=== PATIENT | female | born 1950 | race American Indian/Alaskan Native ===

== ENCOUNTER 2019-12-30 12:30 | Emergency (ER) | payer SELFPAY ==
[2019-12-30] MEDS ORDERED: predniSONE 50 MG TAB PO STA (13:11)
[2019-12-30] MEDS ORDERED: oxyCODONE /ACETAMINOPHEN 5-325MG TAB PO ONE (13:11)
--- NOTE | 2019-12-30 13:15 | Emergency Department Report ---
ED Back Pain/Injury HPI - General Chief Complaint: Back Pain/Injury Stated Complaint: RIGHT SIDED BODY PAIN Time Seen by Provider: 12/30/19 13:10 Source: patient Limitations: No Limitations - History of Present Illness MD Complaint: back pain -: days(s) (3) Similar Symptoms Previously: No Place: home Radiation: right leg Severity: moderate Quality: burning, sharp Consistency: intermittent Improves With: none Worsens With: movement Context: unknown Associated Symptoms: numbness. denies: chest pain, cough, difficulty urinating, incontinence, fever/chills, nausea/vomiting, seizure, shortness of breath - Related Data Previous Rx's Medication Instructions Recorded Last Taken Type methOCARBAMOL [Robaxin TAB] 750 mg PO Q8H PRN #14 tablet 12/30/19 Unknown Rx predniSONE [Deltasone] 20 mg PO QDAY #5 tab 12/30/19 Unknown Rx traMADoL [Ultram] 50 mg PO Q6HR PRN #20 tablet 12/30/19 Unknown Rx Allergies Allergy/AdvReac Type Severity Reaction Status Date / Time No Known Allergies Allergy Unverified 12/30/19 12:59 ED Review of Systems ROS: Stated complaint: RIGHT SIDED BODY PAIN Other details as noted in HPI Constitutional: denies: chills, fever Eyes: denies: eye pain, eye discharge, vision change ENT: denies: ear pain, throat pain Respiratory: denies: cough, shortness of breath, wheezing Cardiovascular: denies: chest pain, palpitations Endocrine: no symptoms reported Gastrointestinal: denies: abdominal pain, nausea, diarrhea Genitourinary: denies: urgency, dysuria, discharge Musculoskeletal: back pain. denies: joint swelling, arthralgia Skin: denies: rash, lesions Neurological: denies: headache, weakness, paresthesias Psychiatric: denies: anxiety, depression Hematological/Lymphatic: denies: easy bleeding, easy bruising ED Past Medical Hx - Past Medical History Previous Medical History?: Yes Hx Hypertension: Yes Hx Diabetes: Yes - Social History Smoking Status: Never Smoker Substance Use Type: None - Medications Home Medications: Home Medications Medication Instructions Recorded Confirmed Last Taken Type methOCARBAMOL [Robaxin TAB] 750 mg PO Q8H PRN #14 tablet 12/30/19 Unknown Rx predniSONE [Deltasone] 20 mg PO QDAY #5 tab 12/30/19 Unknown Rx traMADoL [Ultram] 50 mg PO Q6HR PRN #20 tablet 12/30/19 Unknown Rx ED Physical Exam - General Limitations: No Limitations General appearance: alert, in no apparent distress - Head Head exam: Present: atraumatic, normocephalic - Eye Eye exam: Present: normal appearance - ENT ENT exam: Present: mucous membranes moist - Neck Neck exam: Present: normal inspection - Respiratory Respiratory exam: Present: normal lung sounds bilaterally. Absent: respiratory distress - Cardiovascular Cardiovascular Exam: Present: regular rate, normal rhythm. Absent: systolic murmur, diastolic murmur, rubs, gallop - GI/Abdominal GI/Abdominal exam: Present: soft, normal bowel sounds - Extremities Exam Extremities exam: Present: normal inspection - Back Exam Back exam: Present: normal inspection, tenderness, other (The tenderness of the right sacroiliac joint with palpation. Pain with a a Jade's test is noted.). Absent: paraspinal tenderness - Neurological Exam Neurological exam: Present: alert, oriented X3, CN II-XII intact, reflexes normal. Absent: motor sensory deficit - Psychiatric Psychiatric exam: Present: normal affect, normal mood - Skin Skin exam: Present: warm, dry, intact, normal color. Absent: rash ED Course Vital Signs 12/30/19 12/30/19 12/30/19 12:56 14:18 15:45 Temperature 98.9 F Pulse Rate 86 Respiratory 20 18 18 Rate Blood Pressure 146/85 Blood Pressure [Right] O2 Sat by Pulse 99 Oximetry 12/30/19 16:11 Temperature Pulse Rate 87 Respiratory 18 Rate Blood Pressure Blood Pressure 140/76 [Right] O2 Sat by Pulse 99 Oximetry ED Medical Decision Making - Medical Decision Making Pt presents the emergency department complaining of back pain most consistent with sciatica back Pain. Differential Diagnosis Includes LumbGo Versus Musculoskeletal Spasm, Strain Versus Sciatica, sacroiliitis. No Back Pain Red Flags on History or Physical. Presentation Not Consistent with Malignancy, Fracture, Cauda Equina, Abdominal Aortic Aneurysm, Viscus Perforation, Pulmonary Embolism, Renal Colic, Pyelonephritis. Patient reports no B symptoms, trauma trauma, incontinence, saddle anesthesia, distal weakness, urinary symptoms and is a febrile.. Critical care attestation.: If time is entered above; I have spent that time in minutes in the direct care of this critically ill patient, excluding procedure time. ED Disposition Clinical Impression: Sciatica Disposition: DC-01 TO HOME OR SELFCARE Is pt being admited?: No Does the pt Need Aspirin: No Condition: Stable Instructions: Lumbar Radiculopathy (ED) Prescriptions: predniSONE [Deltasone] 20 mg PO QDAY #5 tab methOCARBAMOL [Robaxin TAB] 750 mg PO Q8H PRN #14 tablet PRN Reason: Pain, Moderate (4-6) traMADoL [Ultram] 50 mg PO Q6HR PRN #20 tablet PRN Reason: Pain Referrals: JOSE MARTEL MD [Staff Physician] - 3-5 Days
[2019-12-30] MEDS ORDERED: KETOROLAC 60 MG/2 ML INJ IM STA (15:09)
[2019-12-30 16:12] VITALS: BP 140/76
== END 2019-12-30 14:57 | disposition home or self-care (01) ==
LOC: EDBD → ED 12:30
DX: M54.30 Sciatica, unspecified side (principal); I10 Essential (primary) hypertension; E11.9 Type 2 diabetes mellitus without complications
CPT/HCPCS: 96372; 99282; J1885; J7512

== ENCOUNTER 2020-01-16 16:07 | Outpatient (CLI) | payer MEDICAID ==
--- NOTE | 2020-01-16 18:17 | XRay Report ---
BILATERAL KNEE 4 VIEW(S) INDICATION / CLINICAL INFORMATION: PAIN IN UNSPECIFIED KNEE COMPARISON: None available. FINDINGS: BONES / JOINT(S): No acute fracture or subluxation. Moderate arthrosis bilaterally, most prominent in the medial tibiofemoral compartment. SOFT TISSUES: No significant abnormality. ADDITIONAL FINDINGS: None. Signer Name: Eric Enriquez MD Signed: 01/16/2020 6:13 PM Workstation Name: [id number]
--- NOTE | 2020-01-16 18:21 | XRay Report ---
Lumbar spine radiograph, 11 images provided. HISTORY: Low back pain. COMPARISON: None FINDINGS: There is grade 1 anterolisthesis of L4 on L5 related to moderate lower lumbar facet arthrop athy. There is also degenerative retrolisthesis of L5 on S1. There is moderate disc space height loss and vacuum phenomenon at L5-S1, mild at other levels. No fracture. No pars defect is identified. The SI joints are intact with bilateral degenerative changes. IMPRESSION: Moderate lower lumbar spondylosis, without acute process identified. Signer Name: Darrian Guan MD Signed: 01/16/2020 6:17 PM Workstation Name: [id number]
== END 2020-01-16 16:08 | disposition home or self-care (01) ==
LOC: XRAY 16:07
PROVIDERS: ATTEND Orthopaedic Surgery
DX: M43.16 Spondylolisthesis, lumbar region (principal); M43.17 Spondylolisthesis, lumbosacral region; M47.816 Spondylosis without myelopathy or radiculopathy, lumbar region; M17.0 Bilateral primary osteoarthritis of knee
CPT/HCPCS: 72110; 73565

== ENCOUNTER 2020-02-16 07:03 | Day surgery (SDC) | payer MEDICARE, MEDICAID ==
[2020-02-16 07:50] VITALS: BP 118/64
[2020-02-16] MEDS ORDERED: LIDOCAINE (1%) 10 MG/1 ML VIAL 20 ML MDV ONE (08:31)
[2020-02-16] MEDS ORDERED: BUPIVACAINE/PF (0.25%) 2.5 MG/ML 30 ML VIAL INFILTRATI ONE (08:31)
[2020-02-16] MEDS ORDERED: BUPIVACAINE/PF (0.5%) 5 MG/1 ML 30 ML VIAL INFILTRATI ONE ×2 (08:32→08:50)
[2020-02-16] MEDS ORDERED: LIDOCAINE (1%) 10 MG/1 ML VIAL 20 ML MDV INFILTRATI ONE (08:50)
--- NOTE | 2020-02-16 09:27 | Procedure Note ---
Date of procedure: 02/16/20 Pre-op diagnosis: Right knee pain Post-op diagnosis: same Procedure: Right geniculate Nerve Block under C-arm fluroscopy procedure The patient taken to the operating room where he was place on the table supine with padded triangular pad placed along the potileal fossa. The right knee prepped and draped in usual sterile fashion. 22-gauge spinal needle used to locate areas for injection, the medial and lateral supracondylar ridges, 2 cm proximal to the superior pole of the patella as well as the medial border of the proximal tibia. These areas were anesthized using lidocaine 1% followed by placement of spinal needle near the medial, and lateral geniculate nerves. A mixture of marcaine and lidocaine injected into the deeper structures. There were no complications noted and he tolerated well. Anesthesia: local Surgeon: JOSE MARTEL Estimated blood loss: minimal Pathology: none Condition: stable Disposition: observation
--- NOTE | 2020-02-16 10:22 | XRay Report ---
RIGHT KNEE 2 VIEWS INDICATION / CLINICAL INFORMATION: RT KNEE PAIN. COMPARISON: None available. FINDINGS: AP and lateral views made in OR show needles projected over the distal femur both medially and latera lly, and over the proximal tibia medially. Fluoroscopy time 16 seconds. 2 images. Signer Name: Mason Bowie MD Signed: 02/16/2020 10:17 AM Workstation Name: [id number]
== END 2020-02-16 09:17 | disposition home or self-care (01) ==
LOC: OR 07:03
PROVIDERS: ATTEND Orthopaedic Surgery
DX: M25.561 Pain in right knee (principal); E78.00 Pure hypercholesterolemia, unspecified; I10 Essential (primary) hypertension; J45.909 Unspecified asthma, uncomplicated; K21.9 Gastro-esophageal reflux disease without esophagitis; M19.90 Unspecified osteoarthritis, unspecified site; D64.9 Anemia, unspecified; Z98.890 Other specified postprocedural states; Z79.899 Other long term (current) drug therapy; Z90.710 Acquired absence of both cervix and uterus; Z79.84 Long term (current) use of oral hypoglycemic drugs; Z98.41 Cataract extraction status, right eye; Z98.42 Cataract extraction status, left eye
CPT/HCPCS: 82962

== ENCOUNTER 2020-08-10 10:38 | Outpatient (CLI) | payer MEDICARE ==
--- NOTE | 2020-08-10 11:57 | XRay Report ---
RIGHT KNEE 2 VIEWS INDICATION / CLINICAL INFORMATION: RIGHT KNEE PAIN. COMPARISON: 04/21/2020 FINDINGS: Right total knee arthroplasty. Normal alignment. No change from the prior examination dated 04/21/2020 Signer Name: Jamir Tan MD FACR Signed: 08/10/2020 11:53 AM Workstation Name: [id number]
== END 2020-08-10 10:39 | disposition home or self-care (01) ==
LOC: XRAY 10:38
PROVIDERS: ATTEND Orthopaedic Surgery
DX: M17.11 Unilateral primary osteoarthritis, right knee (principal); Z96.651 Presence of right artificial knee joint

== ENCOUNTER 2021-07-11 06:37 | Inpatient (IN) | payer MEDICAID, MEDICARE ==
[2021-07-09 11:28] LABS: Hematocrit 33.6 % (30.3-42.9); Hemoglobin 10.8 gm/dl (10.1-14.3); Mean Corpuscular HGB Conc 32 % (30-34); Mean Corpuscular Volume 76 fl (79-97); Platelet Count 221 K/mm3 (140-440); Red Cell Distribution Width 16.9 % (13.2-15.2)
[2021-07-09 11:47] LABS: Calcium 8.9 mg/dL (8.4-10.2); Hemolysis Index 5
[2021-07-09 11:53] LABS: BUN/Creatinine Ratio 15; Blood Urea Nitrogen 12 mg/dL (7-17)
--- NOTE | 2021-07-09 14:35 | Anesthesia Consultation ---
Anesthesia Consult and Med Hx - Airway Anesthetic Teeth Evaluation: Edentulous (Upper) ROM Head & Neck: Adequate Mental/Hyoid Distance: Adequate Mallampati Class: Class II Intubation Access Assessment: Good - Pre-Operative Health Status ASA Pre-Surgery Classification: ASA3 Proposed Anesthetic Plan: General Nerve Block: AC - Pulmonary Hx Smoking: No Hx Asthma: Yes (INHALER PRN ) Hx Respiratory Symptoms: No (Poor exercise tolerance) SOB: Yes (SOB WITH ACTIVITY) Hx Sleep Apnea: No (HENRIETTA PRE SCREEN HIGH RISK) - Cardiovascular System Hx Hypertension: Yes Hx Internal Defibrillator: No - Central Nervous System Hx Neuromuscular Disorder: Yes (Neuropathy. Gout) Hx Seizures: No Hx Back Pain: Yes (WITH SCIATIC PAIN) Hx Psychiatric Problems: No - Gastrointestinal Hx Gastroesophageal Reflux Disease: Yes - Endocrine Hx Insulin Dependent Diabetes: Yes (Poorly controlled) - Hematic Hx Anemia: Yes Hx Sickle Cell Disease: Yes (?trait) - Other Systems Hx Cancer: No Hx Obesity: Yes - Additional Comments Anesthesia Medical History Comments: Here [id number] for R TKA under [place]
[~2021-07-11 06:37] MED LIST: ACETAMINOPHEN 325 MG TAB PO NR; CELECOXIB 200 MG CAP PO NR; MAGNESIUM OXIDE 400 MG TAB PO NR; MIDAZOLAM 2 MG/2 ML INJ IV NR; fentaNYL 100 MCG/2 ML INJ IV NR
[2021-07-11] MEDS ORDERED: TRANEXAMIC ACID 1,000 MG/10 ML ONE (07:14)
[2021-07-11] MEDS ORDERED: BUPIVACAINE/PF (0.5%) 5 MG/1 ML 30 ML VIAL INFILTRATI ONE ×2 (07:14→09:26)
[2021-07-11] MEDS ORDERED: SODIUM CHLORIDE 0.9% 200 ML ONE (07:14)
[2021-07-11] MEDS ORDERED: SODIUM CHLORIDE 0.9% 50 ML ONE (07:14)
[2021-07-11] MEDS ORDERED: KETOROLAC 30 MG/1 ML INJ ONE (07:14)
[2021-07-11] MEDS ORDERED: NEOMY 40 MG/POLYMYXIN B 200,000 UNITS/ML (GU) AMPULE IR ONE ×2 (07:15→09:26)
[2021-07-11] MEDS: LACTATED RINGERS 1,000 ML IV SCH ×2 (07:50→15:12)
[2021-07-11] MEDS ORDERED: ceFAZolin/Water 2 GM/20 ML 2 GM/20 ML SYRINGE IV NR (08:00)
[2021-07-11] MEDS ORDERED: propofoL 200 MG/20 ML VIAL IV ONE ×2 (08:06→08:53)
[2021-07-11] MEDS ORDERED: fentaNYL 100 MCG/2 ML INJ ONE ×2 (08:09→09:30)
[2021-07-11] MEDS ORDERED: ROCURONIUM 50 MG/5 ML INJ IV ONE (08:09)
[2021-07-11] MEDS ORDERED: LIDOCAINE MPF (2%) 20 MG/1 ML VIAL 5 ML ONE (08:09)
[2021-07-11] MEDS ORDERED: BUPIVACAINE/PF (0.25%) 2.5 MG/ML 30 ML VIAL INFILTRATI ONE (08:14)
[2021-07-11] MEDS ORDERED: dexAMETHasone 4 MG/ML VIAL ONE (08:15)
--- NOTE | 2021-07-11 08:17 | Anesthesia Day of Surgery ---
Anesthesia Day of Surgery - Day of Surgery Patient Examined: Yes Patient H&P Reviewed: Yes (Pt reports new cough; +bilat expir wheezing) Patient is NPO: Yes
[2021-07-11] MEDS ORDERED: ONDANSETRON 4 MG/2 ML INJ IV PRN ×2 (08:30→11:30)
[2021-07-11] MEDS ORDERED: HYDROmorphone 1 MG/1 ML INJ IV PRN ×2 (08:30)
[2021-07-11] MEDS ORDERED: ALBUTEROL 2.5 MG/3 ML NEBU IH SCH ×3 (08:30→16:00)
[2021-07-11] MEDS ORDERED: ONDANSETRON 4 MG/2 ML INJ ONE (09:11)
[2021-07-11] MEDS ORDERED: dexAMETHasone 20 MG/5 ML VIAL ONE (09:11)
[2021-07-11] MEDS ORDERED: MORPHINE 10 MG/1 ML INJ IM ONE (09:26)
[2021-07-11] MEDS ORDERED: SODIUM CHLORIDE 0.9% 100 ML IVPB IV ONE (09:26)
[2021-07-11] MEDS ORDERED: KETOROLAC 30 MG/1 ML INJ IV ONE (09:26)
[2021-07-11] MEDS ORDERED: SODIUM CHLORIDE 0.9% IRRIG SOLN 2000 ML IR ONE (09:26)
[2021-07-11] MEDS ORDERED: SODIUM CHLORIDE 0.9% IRR 1,500 ML BOTTLE IR ONE (09:26)
[2021-07-11] MEDS ORDERED: TRANEXAMIC ACID 1,000 MG/10 ML IV ONE (09:26)
[2021-07-11] MEDS ORDERED: SODIUM CHLORIDE 0.9% 50 ML VIAL IV ONE (09:26)
[2021-07-11] MEDS ORDERED: MORPHINE 10 MG/1 ML INJ ONE (09:29)
[2021-07-11] MEDS ORDERED: HYDROmorphone 1 MG/1 ML INJ ONE (10:30)
--- NOTE | 2021-07-11 10:55 | Procedure Note ---
Date of procedure: 07/11/21 Pre-op diagnosis: Severe Osteoarthritis left knee Post-op diagnosis: same Procedure: left total knee replacement Procedure The patient was brought to the OR and place on the OR table supine, next she was given general anesthesia. The patient is left lower extremity was prepped and draped in the usual sterile manner. A timeout procedure was done to identify the patient in the correct operative site. The leg was exsanguinated followed by inflation of the pneumatic tourniquet to 300 mmHg. A midline incision was made over the patella was taken down distally towards the tibial tubercle next the medial retinaculum was incised and the patella was inverted examination of the patient's knee joint revealed typical osteoarthritic changes with large bone spurs noted primarily in the medial compartment both the femoral and tibial's articular surfaces exhibited bare bone and large peripheral osteophytes next a large drill bit was used to enter the medullary canal this was followed by placement of the distal femoral cutting Jig the distal femur was resected approximately 8-9 mm of bone was removed at this time. Attention was turned to the patient's proximal tibia using a external alignme guide the bone was cut using the medial surface as the low point of care was taken to protect the medial collateral ligaments the tibial articular surface was 7-sized A3 a #3 tibial based ray was selected this was followed by placement of the fixation hole or keel into the proximal tibial artery medullary canal. Attention was turned to the distal femur and using a 4 and 1 cutting block a +3 component was selected AP anterior and posterior as well as Shamffer cuts were made a +3 tibial ostomy femoral component was placed and the knee was then taken to a range of motion she appeared to have stability in both the flexion and extension FOLLOWING this the trial components were removed the knee was then copiously irrigated any remaining soft tissue and bony debris were removed at this time next the cement was next and following this the tibial components were inserted beginning with the based ray followed by the polyethylene insert The femoral component was added the excess were removed the knee was held in extension until the cement hardened following hardening of cement the knee was then brought back into of flexion any remaining soft tissue and bony debris were removed at this time. The wound again was irrigated and was closed in a standard routine fashion. Dressings were applied the patient tolerated the procedure there were no complications she was then taken Anesthesia: GETA Surgeon: JOSE MARTEL (Porfirio Wallace, 1st assist) Estimated blood loss: 50-100ml Pathology: list (portions of distal femur and proximal tibia sent to path) Condition: stable Disposition: PACU
[2021-07-11] MEDS ORDERED: ALBUTEROL 8.5 GM MDI INHALATION IH ONE (10:56)
[2021-07-11] MEDS ORDERED: GLYCOPYRROLATE 0.4 MG/2 ML INJ ONE (10:59)
[2021-07-11] MEDS ORDERED: IBUPROFEN 800 MG TAB PO PRN (11:00)
[2021-07-11] MEDS ORDERED: NEOSTIGMINE 10MG/10 ML INJ MDV ONE (11:00)
[2021-07-11] MEDS ORDERED: INSULIN LISPRO 100 UNIT/ML SUB-Q SCH (11:30)
[2021-07-11] MEDS ORDERED: INSULIN LISPRO 100 UNIT/ML SUB-Q ONE (11:33)
[2021-07-11] MEDS ORDERED: SODIUM CHLORIDE 0.9% 1000 ML 1,000 ML ONE (11:40)
[2021-07-11] MEDS ORDERED: INSULIN REGULAR, HUMAN 100 UNITS/1 ML SUB-Q SCH (13:00)
[2021-07-11] MEDS ORDERED: INSULIN REGULAR, HUMAN 100 UNITS/1 ML IV SCH (13:00)
--- NOTE | 2021-07-11 14:54 | Post Anesthesia Evaluation ---
- Post Anesthesia Evaluation Patient Participated: Yes Airway Patent: Yes Stable Respiratory Function: Yes Nausea/Vomiting: No Temp > 96.8F: Yes Pain Manageable: Yes Adequeate Hydration: Yes Anesthesia Complications: No Block Receding Appropriately: Not Applicable Patient on Ventilator: No
[2021-07-11] MEDS ORDERED: ZOLPIDEM 5 MG TAB PO PRN (22:00)
[2021-07-11] MEDS: INSULIN LISPRO 100 UNIT/ML SUB-Q SCH (22:58)
[2021-07-12] MEDS: MORPHINE 4 MG/1 ML INJ IV PRN ×2 (00:07→12:24)
--- NOTE | 2021-07-12 08:39 | XRay Report ---
. LEFT KNEE 2 VIEW(S) INDICATION / CLINICAL INFORMATION: post op evaluation, s/p TKR COMPARISON: None available. FINDINGS: Knee arthroplasty has been placed with satisfactory postoperative radiographic appearance. Signer Name: Oli Dwyer MD Signed: 07/12/2021 8:35 AM Workstation Name: [id number]
--- NOTE | 2021-07-12 08:45 | Post Anesthesia Evaluation ---
- Post Anesthesia Evaluation Patient Participated: Yes Airway Patent: Yes Stable Respiratory Function: Yes Nausea/Vomiting: No Temp > 96.8F: Yes Pain Manageable: Yes Adequeate Hydration: Yes Anesthesia Complications: No Block Receding Appropriately: Yes Patient on Ventilator: No
[2021-07-12] MEDS: INSULIN LISPRO 100 UNIT/ML SUB-Q SCH ×4 (09:09→22:16)
[2021-07-12] MEDS: ENOXAPARIN 40 MG/0.4 ML INJ SUB-Q SCH (09:09)
--- NOTE | 2021-07-12 11:50 | Consultation ---
History of Present Illness - Reason for Consult Consult date: 07/12/21 Medical management Requesting physician: JOSE MARTEL - History of Present Illness Left total knee replacement Hospitalist service was requested medical consult and medical management Patient has multiple medical problems as hypertension, dyslipidemia, type 2 diabetes melitis, morbid obesity Patient complains of generalized weakness and some pain at the surgical site Morbidly obese in mild distress Past History Past Medical History: diabetes, hypertension, hyperlipidemia, other (Obesity, bronchial asthma neuropathy,) Past Surgical History: total hip replacement (Left total knee replacement) Social history: denies: smoking, alcohol abuse, prescription drug abuse Family history: no significant family history Medications and Allergies Allergies Allergy/AdvReac Type Severity Reaction Status Date / Time LOBSTER AdvReac Itching Uncoded 04/19/20 11:38 Home Medications Medication Instructions Recorded Confirmed Last Taken Type Albuterol Sulfate [Proventil Hfa] 2 puff IH Q4H PRN 02/13/20 07/12/21 07/10/21 History amLODIPine 10 mg PO DAILY #30 tablet 04/24/20 07/11/21 07/10/21 Rx Ferrous Sulfate [Iron 325 MG] 325 mg PO DAILY 07/09/21 07/11/21 07/10/21 History ALBUTEROL NEB's [Proventil 0.083% 2.5 mg IH TID PRN 07/12/21 07/12/21 Unknown History NEBS] Apixaban [Eliquis] 5 mg PO DAILY #30 07/12/21 Unknown Rx Budesonide/Formoterol Fumarate 2 puff IH BID 07/12/21 07/12/21 07/10/21 History [Symbicort 80-4.5 Mcg Inhaler] Insulin Glargine [Lantus VIAL] 30 unit SUB-Q QHS 07/12/21 07/12/21 07/10/21 History Meclizine [Antivert] 12.5 mg PO BID PRN 07/12/21 07/12/21 07/10/21 History Metformin HCl [metFORMIN] 1,000 mg PO BID 07/12/21 07/12/21 07/10/21 History Montelukast [Singulair] 10 mg PO QPM 07/12/21 07/12/21 07/10/21 History Omeprazole 40 mg PO QDAY 05/08/2807/12/21 07/10/21 History Oxycodone HCl/Acetaminophen 1 each PO Q6HR PRN #30 07/12/21 Unknown Rx [Percocet 10/325 mg] Valsartan/Hydrochlorothiazide 1 tab PO QDAY 07/12/21 07/12/21 07/10/21 History [Valsartan-Hctz 320-25 mg Tab] glipiZIDE [Glucotrol] 10 mg PO QDAY 07/12/21 07/12/21 07/10/21 History Active Meds: Active Medications Bisacodyl (Bisacodyl 10 Mg Rect Supp) 10 mg NM QDAY PRN PRN Reason: Constip unreliev by MOM/or NPO Enoxaparin Sodium (Enoxaparin 40 Mg/0.4 Ml Inj) 40 mg SUB-Q QDAY LIZBETH Last Admin: 07/12/21 09:09 Dose: 40 mg Lactated Ringer's (Lactated Ringers) 1,000 mls @ 125 mls/hr IV DIRECT LIZBETH Last Infusion: 07/11/21 23:48 Dose: Infused Ibuprofen (Ibuprofen 800 Mg Tab) 800 mg PO Q8H PRN PRN Reason: Pain, Moderate (4-6) Insulin Human Lispro (Insulin Lispro 100 Unit/Ml) 0 unit SUB-Q ACHS ILZBETH; Cherise col Last Admin: 07/12/21 09:09 Dose: 3 unit Ketorolac Tromethamine (Ketorolac 30 Mg/1 Ml Inj) 15 mg IV Q6H PRN PRN Reason: Pain, Moderate (4-6) Stop: 07/16/21 12:59 Morphine Sulfate (Morphine 4 Mg/1 Ml Inj) 4 mg IV Q4H PRN PRN Reason: Pain , Severe (7-10) Last Admin: 07/12/21 00:07 Dose: 4 mg Ondansetron HCl (Ondansetron 4 Mg/2 Ml Inj) 4 mg IV Q8H PRN PRN Reason: Nausea And Vomiting Sodium Chloride (Sodium Chloride 0.9% 10 Ml Flush Syringe) 10 ml IV PRN PRN PRN Reason: flush Zolpidem Tartrate (Zolpidem 5 Mg Tab) 5 mg PO QHS PRN PRN Reason: Sleep Review of Systems Constitutional: fatigue, no weight loss, no weight gain Ears, nose, mouth and throat: no nasal congestion, no nasal discharge Cardiovascular: no chest pain, no orthopnea Respiratory: no cough, no shortness of breath Gastrointestinal: no abdominal pain, no nausea, no vomiting Musculoskeletal: no myalgias, no arthritis Integumentary: no rash, no lesions Neurological: no seizures, no syncope, no tremors Psychiatric: no anxiety, no confusion Endocrine: no cold intolerance, no heat intolerance Hematologic/Lymphatic: no easy bruising, no easy bleeding Allergic/Immunologic: no urticaria, no allergic rhinitis Exam - Constitutional Vitals: Temp Pulse Resp BP Pulse Ox 98.0 F 88 20 188/86 97 07/12/21 05:20 07/12/21 05:20 07/12/21 05:20 07/12/21 05:20 07/12/21 06:51 General appearance: Present: mild distress, well-nourished, obese (Morbidly obese) - EENT Eyes: Present: PERRL, EOM intact - Neck Neck: Present: supple, normal ROM - Respiratory Respiratory effort: normal Respiratory: bilateral: diminished, negative: rales, rhonchi, wheezing - Cardiovascular Rhythm: regular Heart Sounds: Present: S1 & S2 - Extremities Extremities: no ischemia, abnormal (Surgical dressing in place) - Abdominal General gastrointestinal: Present: soft, non-tender, non-distended, normal bowel sounds - Integumentary Integumentary: Present: clear, warm - Musculoskeletal Musculoskeletal: strength equal bilaterally, generalized weakness - Psychiatric Psychiatric: appropriate mood/affect, cooperative - Neurologic Neurologic: moves all extremities Results - Labs CBC & Chem 7: 07/09/21 10:05 07/09/21 00:01 Labs: Abnormal lab results 07/11/21 07/11/21 07/11/21 Range/Units 11:20 12:39 14:21 POC Glucose 318 H 281 H 181 H (70-105) mg/dL 07/11/21 07/12/21 Range/Units 22:25 08:18 POC Glucose 326 H 246 H (70-105) mg/dL Assessment and Plan --S/P left total knee replacement; Continue postop care per orthopedic Pain management, physical therapy occupational therapy rehabilitation -- Hypertension; moderate control Resume home antihypertensives As needed IV hydralazine -- Type 2 diabetes mellitus; Accu-Chek, sliding scale coverage, ADA diet Long-acting insulin and oral hypoglycemics -- DVT prophylaxis; Subcu Lovenox --Morbid obesity; BMI 39.2 Diet modification exercise as tolerated and weight reduction When patient is medically stable Preventive counseling;+30 minutes patient advised dietary modification Exercise as tolerated and weight reduction when medically stable Patient was also advised the importance of physical activity And lifestyle changes, she verbalized understanding I have answered all questions We will closely monitor the patient and adjust management as needed Plan of care reviewed with the patient and her nurse Thank you for this consultation we will follow the patient along with you
[2021-07-12] MEDS ORDERED: ALBUTEROL 8.5 GM MDI INHALATION IH PRN (13:30)
[2021-07-12] MEDS ORDERED: hydrALAZINE 20 MG/1 ML INJ IV PRN (14:00)
[2021-07-12] MEDS: ALBUTEROL 2.5 MG/3 ML NEBU IH SCH ×2 (14:00→16:00)
--- NOTE | 2021-07-12 14:08 | Progress Note ---
Assessment and Plan s/p left TKR doing well, hopefully dc 2moro Subjective Date of service: 07/12/21 Interval history: c/o some incisional pain, a little blood on dressing otherwise ok, PT started... Objective Vital signs: Vital Signs - 12hr 07/12/21 07/12/21 05:20 06:51 Temperature 98.0 F Pulse Rate 88 Respiratory 20 Rate Blood Pressure 188/86 O2 Sat by Pulse 100 97 Oximetry Incision: draining Weight bearing status: as tolerated - Labs CBC & BMP: 07/09/21 10:05 07/09/21 00:01 Labs: Abnormal lab results 07/11/21 07/11/21 07/11/21 Range/Units 11:20 12:39 14:21 POC Glucose 318 H 281 H 181 H (70-105) mg/dL 07/11/21 07/12/21 07/12/21 Range/Units 22:25 08:18 11:21 POC Glucose 326 H 246 H 323 H (70-105) mg/dL
[2021-07-12] MEDS: KETOROLAC 30 MG/1 ML INJ IV PRN (14:48)
[2021-07-12] MEDS ORDERED: ALBUTEROL 2.5 MG/3 ML NEBU IH PRN ×2 (16:00→23:34)
[2021-07-12] MEDS ORDERED: INSULIN GLARGINE 100 UNITS/ML SUB-Q SCH ×2 (22:00)
[2021-07-13] MEDS: ALBUTEROL 2.5 MG/3 ML NEBU IH SCH ×3 (07:27→21:06)
[2021-07-13] MEDS: INSULIN LISPRO 100 UNIT/ML SUB-Q SCH ×4 (07:30→21:31)
[2021-07-13] MEDS: glipiZIDE 10 MG TAB PO SCH (09:17)
[2021-07-13] MEDS: ENOXAPARIN 40 MG/0.4 ML INJ SUB-Q SCH (09:17)
[2021-07-13] MEDS: FERROUS SULFATE 325 MG TAB PO SCH (09:18)
[2021-07-13] MEDS: amLODIPine 10 MG TAB PO SCH (09:18)
[2021-07-13] MEDS ORDERED: NON-FORMULARY EACH (Metformin Hcl [Metformin] 1,000 MG Tablet) PO SCH (10:00)
[2021-07-13] MEDS ORDERED: INSULIN GLARGINE 100 UNITS/ML SUB-Q SCH (10:01)
--- NOTE | 2021-07-13 10:31 | Discharge Summary ---
Providers - Providers Date of Admission: 07/11/21 06:37 Date of discharge: 07/13/21 Attending physician: JOSE MARTEL MD 07/11/21 10:46 Consult to Case Management [CONS] Routine Services Needed at Discharge: Other Notified:: yes Additional Physician Instructions: Assess Discharge needs. Physical Therapy Evaluation and Treat [CONS] Routine Comment: Reason For Exam: Eval and Treat Weight bearing status?: Full wt bearing Assistive devices?: Yes If so list: Walker 07/12/21 01:01 Consult to Physician [CONS] Routine Comment: s/p left total knee replacement Consulting Provider: JOSE RAMIREZ Physician Instructions: need medical management Reason For Exam: medical management Primary care physician: JOSÉ MIGUEL LOPEZ Hospitalization Disposition: 30 STILL A PATIENT Exam - Constitutional Vitals: Temp Pulse Resp BP Pulse Ox 98.1 F 88 20 167/77 96 07/13/21 06:13 07/13/21 07:27 07/13/21 07:27 07/13/21 06:13 07/13/21 07:27 Plan Follow up with: JOSÉ MIGUEL LOPEZ, [facility] [Primary Care Provider] - 7 Days Prescriptions: Apixaban [Eliquis] 5 mg PO DAILY #30 Oxycodone HCl/Acetaminophen [Percocet 10/325 mg] 1 each PO Q6HR PRN #30 PRN Reason: Pain
[2021-07-13] MEDS: KETOROLAC 30 MG/1 ML INJ IV PRN (12:01)
[2021-07-13] MEDS: metFORMIN 500 MG TAB PO SCH ×2 (12:51→17:04)
--- NOTE | 2021-07-13 18:10 | Progress Note ---
Assessment and Plan Assessment and plan: --S/P left total knee replacement; Continue postop care per orthopedic Pain management, physical therapy occupational therapy rehabilitation -- Hypertension; moderate control Resume home antihypertensives As needed IV hydralazine -- Type 2 diabetes mellitus; uncontrolled Accu-Chek, sliding scale coverage, ADA diet Long-acting insulin and oral hypoglycemics We will adjust the dose, discharge the patient tomorrow Blood sugars are stable --Morbid obesity; BMI 39.2 Diet modification exercise as tolerated and weight reduction When patient is medically stable -- DVT prophylaxis; Subcu Lovenox Preventive counseling;+30 minutes patient advised dietary modification Exercise as tolerated and weight reduction when medically stable Patient was also advised the importance of physical activity And lifestyle changes, she verbalized understanding I have answered all questions We will closely monitor the patient and adjust management as needed Plan of care reviewed with the patient and her nurse Thank you for this consultation we will follow the patient along with you 07/13/2021; orthopedic surgeon has cleared the patient for discharge today However patient's blood sugars are not well controlled, more than 300s Increase the Lantus dose, closely monitor blood sugars, will hold the discharge Monitor blood sugars overnight and discharge tomorrow if stable. I informed orthopedic surgeon Dr. Zimmerman and he agreed with the plan. History Interval history: I have seen and examined the patient at the bedside this morning Patient's chart and medications reviewed Patient's blood sugars are still labile Will increase the Lantus insulin 30 units Patient complains of some pain at the surgical site Vital signs reviewed Hospitalist Physical - Constitutional Vitals: Temp Pulse Resp BP Pulse Ox 98.0 F 101 H 16 164/79 97 07/13/21 16:41 07/13/21 16:41 07/13/21 16:41 07/13/21 16:41 07/13/21 16:41 General appearance: Present: no acute distress, well-nourished, obese (Morbidly obese) - EENT Eyes: Present: PERRL, EOM intact ENT: hearing intact, clear oral mucosa - Neck Neck: Present: supple, normal ROM - Respiratory Respiratory effort: normal Respiratory: bilateral: diminished, negative: rales, rhonchi, wheezing - Cardiovascular Rhythm: regular Heart Sounds: Present: S1 & S2 - Extremities Extremities: no ischemia, No edema - Abdominal General gastrointestinal: soft, non-tender, non-distended, normal bowel sounds - Integumentary Integumentary: Present: clear, warm - Psychiatric Psychiatric: appropriate mood/affect, cooperative - Neurologic Neurologic: moves all extremities Results - Labs CBC & Chem 7: 07/09/21 10:05 07/09/21 00:01 Labs: Laboratory Last Values WBC 4.2 K/mm3 (4.5-11.0) L 07/09/21 10:05 RBC 4.40 M/mm3 (3.65-5.03) 07/09/21 10:05 Hgb 10.8 gm/dl (10.1-14.3) 07/09/21 10:05 Hct 33.6 % (30.3-42.9) 07/09/21 10:05 MCV 76 fl (79-97) L 07/09/21 10:05 MCH 25 pg (28-32) L 07/09/21 10:05 MCHC 32 % (30-34) 07/09/21 10:05 RDW 16.9 % (13.2-15.2) H 07/09/21 10:05 Plt Count 221 K/mm3 (140-440) 07/09/21 10:05 Sodium 135 mmol/L (137-145) L 07/09/21 00:01 Potassium 4.1 mmol/L (3.6-5.0) 07/09/21 00:01 Chloride 97.4 mmol/L (98-107) L 07/09/21 00:01 Carbon Dioxide 26 mmol/L (22-30) 07/09/21 00:01 Anion Gap 16 mmol/L 07/09/21 00:01 BUN 12 mg/dL (7-17) 07/09/21 00:01 Creatinine 0.8 mg/dL (0.6-1.2) 07/09/21 00:01 Estimated GFR > 60 ml/min 07/09/21 00:01 BUN/Creatinine Ratio 15 % 07/09/21 00:01 Glucose 294 mg/dL (65-100) H 07/09/21 00:01 POC Glucose 303 mg/dL (70-105) H 07/13/21 15:53 Calcium 8.9 mg/dL (8.4-10.2) 07/09/21 00:01 SARS-CoV-2 (PCR) Negative (Negative) 07/09/21 10:20 Weir/IV: Voiding Method Bedpan Active Medications - Current Medications Current Medications: Generic Name Dose Route Start Last Admin Trade Name Freq PRN Reason Stop Dose Admin Albuterol 2.5 mg 07/12/21 16:00 07/13/21 00:01 Albuterol 2.5 Mg/3 Ml Nebu IH 2.5 mg Q4HRT PRN Administration Shortness Of Breath Albuterol 2.5 mg 07/13/21 08:00 07/13/21 14:40 Albuterol 2.5 Mg/3 Ml Nebu IH 2.5 mg TIDRT LIZBETH Administration Amlodipine Besylate 10 mg 07/13/21 10:00 07/13/21 09:18 Amlodipine 10 Mg Tab PO 10 mg DAILY LIZBETH Administration Bisacodyl 10 mg 07/11/21 11:00 Bisacodyl 10 Mg Rect Supp FL QDAY PRN Constip unreliev by MOM/or NPO Enoxaparin Sodium 40 mg 07/12/21 10:00 07/13/21 09:17 Enoxaparin 40 Mg/0.4 Ml Inj SUB-Q 40 mg QDAY LIZBETH Administration Ferrous Sulfate 325 mg 07/13/21 10:00 07/13/21 09:18 Ferrous Sulfate 325 Mg Tab PO 325 mg DAILY LIZBETH Administration Glipizide 10 mg 07/13/21 08:00 07/13/21 09:17 Glipizide 10 Mg Tab PO 10 mg QDDIAB LIZBETH Administration Hydralazine HCl 10 mg 07/12/21 14:00 Hydralazine 20 Mg/1 Ml Inj IV Q4HR PRN Hypertension Lactated Ringer's 1,000 mls @ 125 mls/hr 07/11/21 06:00 07/11/21 23:48 Lactated Ringers IV Infused DIRECT LIZBETH Infusion Ibuprofen 800 mg 07/11/21 11:00 Ibuprofen 800 Mg Tab PO Q8H PRN Pain, Moderate (4-6) Insulin Glargine 30 units 07/13/21 10:01 Insulin Glargine 100 Units/Ml SUB-Q QHS LIZBETH Insulin Human Lispro 0 unit 07/11/21 22:44 07/13/21 16:30 Insulin Lispro 100 Unit/Ml SUB-Q 6 unit ACHS LIZBETH Administration Protocol Ketorolac Tromethamine 15 mg 07/11/21 13:00 07/13/21 12:01 Ketorolac 30 Mg/1 Ml Inj IV 07/16/21 12:59 15 mg Q6H PRN Administration Pain, Moderate (4-6) Metformin HCl 1,000 mg 07/13/21 12:50 07/13/21 17:04 Metformin 500 Mg Tab PO 1,000 mg BIDDIAB LIZBETH Administration Morphine Sulfate 4 mg 07/11/21 11:00 07/12/21 12:24 Morphine 4 Mg/1 Ml Inj IV 4 mg Q4H PRN Administration Pain , Severe (7-10) Ondansetron HCl 4 mg 07/11/21 11:30 Ondansetron 4 Mg/2 Ml Inj IV Q8H PRN Nausea And Vomiting Sodium Chloride 10 ml 07/11/21 12:00 Sodium Chloride 0.9% 10 Ml Flush Syringe IV PRN PRN flush Zolpidem Tartrate 5 mg 07/11/21 22:00 Zolpidem 5 Mg Tab PO QHS PRN Sleep
[2021-07-14] MEDS: MORPHINE 4 MG/1 ML INJ IV PRN (02:59)
[2021-07-14 05:54] VITALS: BP 121/64
[2021-07-14] MEDS: INSULIN LISPRO 100 UNIT/ML SUB-Q SCH ×2 (07:00→11:30)
--- NOTE | 2021-07-14 07:54 | Progress Note ---
Assessment and Plan Assessment and plan: --S/P left total knee replacement; Continue postop care per orthopedic Pain management, physical therapy occupational therapy rehabilitation -- Hypertension; moderate control Resume home antihypertensives As needed IV hydralazine -- Type 2 diabetes mellitus; well controlled Accu-Chek, sliding scale coverage, ADA diet Long-acting insulin and oral hypoglycemics Patient is stable be discharged --Morbid obesity; BMI 39.2 Diet modification exercise as tolerated and weight reduction When patient is medically stable -- DVT prophylaxis; Dr. Zimmerman recommended Eliquis 5 mg p.o. daily As postop knee replacement DVT prophylaxis upon discharge Preventive counseling;+30 minutes patient advised dietary modification Exercise as tolerated and weight reduction when medically stable Patient was also advised the importance of physical activity And lifestyle changes, she verbalized understanding I have answered all questions Patient may be discharged home today Follow-up with primary care physician, orthopedic surgeon per schedule DC with home health services and home PT Stable at discharge History Interval history: I have seen and examined the patient at the bedside Patient's chart and medications reviewed. Patient was cleared for discharge yesterday by orthopedic surgeon Dr. Zimmerman However discharge was held due to uncontrolled blood sugars Today patient's blood sugars are well controlled Patient has no new complaints Vital signs reviewed Hospitalist Physical - Constitutional Vitals: Temp Pulse Resp BP Pulse Ox 98.0 F 88 16 121/64 94 07/14/21 04:40 07/14/21 04:40 07/14/21 04:40 07/14/21 04:40 07/14/21 04:40 General appearance: Present: no acute distress, well-nourished, obese (Morbidly obese) - EENT Eyes: Present: PERRL, EOM intact - Neck Neck: Present: supple, normal ROM - Respiratory Respiratory effort: normal Respiratory: bilateral: diminished, negative: rales, rhonchi, wheezing - Cardiovascular Rhythm: regular Heart Sounds: Present: S1 & S2 - Extremities Extremities: no ischemia, abnormal (Postop face) - Abdominal General gastrointestinal: soft, non-tender, non-distended, normal bowel sounds - Integumentary Integumentary: Present: clear, warm - Psychiatric Psychiatric: appropriate mood/affect, cooperative - Neurologic Neurologic: moves all extremities Results - Labs CBC & Chem 7: 07/09/21 10:05 07/09/21 00:01 Labs: Laboratory Last Values WBC 4.2 K/mm3 (4.5-11.0) L 07/09/21 10:05 RBC 4.40 M/mm3 (3.65-5.03) 07/09/21 10:05 Hgb 10.8 gm/dl (10.1-14.3) 07/09/21 10:05 Hct 33.6 % (30.3-42.9) 07/09/21 10:05 MCV 76 fl (79-97) L 07/09/21 10:05 MCH 25 pg (28-32) L 07/09/21 10:05 MCHC 32 % (30-34) 07/09/21 10:05 RDW 16.9 % (13.2-15.2) H 07/09/21 10:05 Plt Count 221 K/mm3 (140-440) 07/09/21 10:05 Sodium 135 mmol/L (137-145) L 07/09/21 00:01 Potassium 4.1 mmol/L (3.6-5.0) 07/09/21 00:01 Chloride 97.4 mmol/L (98-107) L 07/09/21 00:01 Carbon Dioxide 26 mmol/L (22-30) 07/09/21 00:01 Anion Gap 16 mmol/L 07/09/21 00:01 BUN 12 mg/dL (7-17) 07/09/21 00:01 Creatinine 0.8 mg/dL (0.6-1.2) 07/09/21 00:01 Estimated GFR > 60 ml/min 07/09/21 00:01 BUN/Creatinine Ratio 15 % 07/09/21 00:01 Glucose 294 mg/dL (65-100) H 07/09/21 00:01 POC Glucose 234 mg/dL (70-105) H 07/13/21 21:20 Calcium 8.9 mg/dL (8.4-10.2) 07/09/21 00:01 SARS-CoV-2 (PCR) Negative (Negative) 07/09/21 10:20 Weir/IV: Voiding Method Bedpan Active Medications - Current Medications Current Medications: Generic Name Dose Route Start Last Admin Trade Name Freq PRN Reason Stop Dose Admin Albuterol 2.5 mg 07/12/21 16:00 07/13/21 00:01 Albuterol 2.5 Mg/3 Ml Nebu IH 2.5 mg Q4HRT PRN Administration Shortness Of Breath Albuterol 2.5 mg 07/13/21 08:00 07/13/21 21:06 Albuterol 2.5 Mg/3 Ml Nebu IH 2.5 mg TIDRT LIZBETH Administration Amlodipine Besylate 10 mg 07/13/21 10:00 07/13/21 09:18 Amlodipine 10 Mg Tab PO 10 mg DAILY LIZBETH Administration Bisacodyl 10 mg 07/11/21 11:00 Bisacodyl 10 Mg Rect Supp [place] QDAY PRN Constip unreliev by MOM/or NPO Enoxaparin Sodium 40 mg 07/12/21 10:00 07/13/21 09:17 Enoxaparin 40 Mg/0.4 Ml Inj SUB-Q 40 mg QDAY LIZBETH Administration Ferrous Sulfate 325 mg 07/13/21 10:00 07/13/21 09:18 Ferrous Sulfate 325 Mg Tab PO 325 mg DAILY LIZBETH Administration Glipizide 10 mg 07/13/21 08:00 07/13/21 09:17 Glipizide 10 Mg Tab PO 10 mg QDDIAB LIZBETH Administration Hydralazine HCl 10 mg 07/12/21 14:00 Hydralazine 20 Mg/1 Ml Inj IV Q4HR PRN Hypertension Lactated Ringer's 1,000 mls @ 125 mls/hr 07/11/21 06:00 07/11/21 23:48 Lactated Ringers IV Infused DIRECT LIZBETH Infusion Ibuprofen 800 mg 07/11/21 11:00 Ibuprofen 800 Mg Tab PO Q8H PRN Pain, Moderate (4-6) Insulin Glargine 30 units 07/13/21 10:01 07/13/21 21:30 Insulin Glargine 100 Units/Ml SUB-Q 30 units QHS LIZBETH Administration Insulin Human Lispro 0 unit 07/11/21 22:44 07/13/21 21:31 Insulin Lispro 100 Unit/Ml SUB-Q 3 unit ACHS LIZBETH Administration Protocol Ketorolac Tromethamine 15 mg 07/11/21 13:00 07/13/21 12:01 Ketorolac 30 Mg/1 Ml Inj IV 07/16/21 12:59 15 mg Q6H PRN Administration Pain, Moderate (4-6) Metformin HCl 1,000 mg 07/13/21 12:50 07/13/21 17:04 Metformin 500 Mg Tab PO 1,000 mg BIDDIAB LIZBETH Administration Morphine Sulfate 4 mg 07/11/21 11:00 07/14/21 02:59 Morphine 4 Mg/1 Ml Inj IV 4 mg Q4H PRN Administration Pain , Severe (7-10) Ondansetron HCl 4 mg 07/11/21 11:30 Ondansetron 4 Mg/2 Ml Inj IV Q8H PRN Nausea And Vomiting Sodium Chloride 10 ml 07/11/21 12:00 Sodium Chloride 0.9% 10 Ml Flush Syringe IV PRN PRN flush Zolpidem Tartrate 5 mg 07/11/21 22:00 Zolpidem 5 Mg Tab PO QHS PRN Sleep
[2021-07-14] MEDS: ALBUTEROL 2.5 MG/3 ML NEBU IH SCH (08:00)
[2021-07-14] MEDS: glipiZIDE 10 MG TAB PO SCH (08:00)
[2021-07-14] MEDS: metFORMIN 500 MG TAB PO SCH (08:00)
[2021-07-14] MEDS: FERROUS SULFATE 325 MG TAB PO SCH (09:02)
[2021-07-14] MEDS: amLODIPine 10 MG TAB PO SCH (09:02)
[2021-07-14] MEDS: ENOXAPARIN 40 MG/0.4 ML INJ SUB-Q SCH (09:03)
== END 2021-07-14 12:48 | disposition home health service (06) | DRG 470 ==
LOC: 3A 06:37
PROVIDERS: ADMIT Orthopaedic Surgery; ATTEND Orthopaedic Surgery
PROC: 0SRD0J9 Replacement of Left Knee Joint with Synthetic Substitute, Cemented, Open Approach (ICD-10-PCS; principal; 2021-07-11)
DX: M17.12 Unilateral primary osteoarthritis, left knee (principal); K21.9 Gastro-esophageal reflux disease without esophagitis; E11.9 Type 2 diabetes mellitus without complications; E66.9 Obesity, unspecified; E78.5 Hyperlipidemia, unspecified; I10 Essential (primary) hypertension; E66.01 Morbid (severe) obesity due to excess calories; Z20.822 Contact with and (suspected) exposure to COVID-19; Z68.39 Body mass index [BMI] 39.0-39.9, adult
CPT/HCPCS: 36415; 80048; 82962; 85027; 88304; 88309; 88311; 94640; 94760; G0378; J1815; J3490; J7121; Q9967; C1713; C1776; J1100; J1170; J1650; J1885; J2270; J2405; J2704; J2710; J3010; J7030; J7120; U0003

== ENCOUNTER 2021-07-26 16:38 | Emergency (ER) | payer MEDICARE ==
[2021-07-26] MEDS ORDERED: SODIUM CHLORIDE 0.9% 1000 ML 1,000 ML IV ONE (21:31)
[2021-07-26 22:15] LABS: Basophils # (Auto) 0.2 K/mm3 (0.0-0.1); Basophils % (Auto) 1.8 % (0.0-1.8); Eosinophils # (Auto) 0.3 K/mm3 (0.0-0.4); Eosinophils % (Auto) 3.2 % (0.0-4.3); Hematocrit 31.9 % (30.3-42.9); Hemoglobin 10.2 gm/dl (10.1-14.3); Lymphocytes # (Auto) 1.5 K/mm3 (1.2-5.4); Lymphocytes % (Auto) 15.6 % (13.4-35.0); Mean Corpuscular HGB Conc 32 % (30-34); Mean Corpuscular Volume 76 fl (79-97); Monocytes # (Auto) 0.6 K/mm3 (0.0-0.8); Monocytes % (Auto) 6.2 % (0.0-7.3); Platelet Count 445 K/mm3 (140-440); Red Blood Count 4.21 M/mm3 (3.65-5.03); Red Cell Distribution Width 17.5 % (13.2-15.2)
--- NOTE | 2021-07-26 22:20 | XRay Report ---
LEFT KNEE 3 VIEWS INDICATION / CLINICAL INFORMATION: Left knee pain. COMPARISON: 07/12/21. FINDINGS: BONES / JOINT(S): There is a knee prosthesis. I see no evidence of acute fracture, subluxation or ning tructive lesion. SOFT TISSUES: There is mild soft tissue swelling involving the anterior knee. ADDITIONAL FINDINGS: None. Signer Name: Ramesh Mcfarland MD Signed: 07/26/2021 10:16 PM Workstation Name: [id number]
--- NOTE | 2021-07-26 22:21 | XRay Report ---
CHEST 1 VIEW 07/26/2021 9:13 PM INDICATION / CLINICAL INFORMATION: Dyspnea. COMPARISON: None available. FINDINGS: SUPPORT DEVICES: None. HEART / MEDIASTINUM: The heart size and pulmonary vasculature are normal. LUNGS / PLEURA: No significant pulmonary or pleural abnormality. No pneumothorax. ADDITIONAL FINDINGS: No significant additional findings. IMPRESSION: No acute findings. Signer Name: Ramesh Mcfarland MD Signed: 07/26/2021 10:16 PM Workstation Name: [id number]
[2021-07-26 22:23] LABS: INR 0.98 (0.87-1.13)
[2021-07-26 22:32] LABS: Alanine Aminotransferase 12 units/L (7-56); Albumin 3.7 g/dL (3.9-5); BUN/Creatinine Ratio 15; Blood Urea Nitrogen 15 mg/dL (7-17); Calcium 9.4 mg/dL (8.4-10.2); Hemolysis Index 4
--- NOTE | 2021-07-26 23:31 | Emergency Department Report ---
ED General Adult HPI - General Chief complaint: Hyperglycemia Stated complaint: HYPERGLYCEMIA/MALAISE Time Seen by Provider: 07/26/21 21:15 Source: EMS Mode of arrival: Ambulatory Limitations: No Limitations - History of Present Illness Initial comments: PT seen at Urgent care for elevated BG and sent to ED. Pt also c/o left knee pain after rect knee replacement x 3 weeks ago. BG 280 upon arrival to ED -: Gradual, days(s) Severity scale (0 -10): 2 Quality: aching Consistency: intermittent Improves with: none Worsens with: none - Related Data Home Medications Medication Instructions Recorded Confirmed Last Taken Ferrous Sulfate [Iron 325 MG] 325 mg PO DAILY 07/09/21 07/11/21 07/10/21 ALBUTEROL NEB's [Proventil 0.083% 2.5 mg IH TID PRN 07/12/21 07/12/21 Unknown NEBS] Budesonide/Formoterol Fumarate 2 puff IH BID 07/12/21 07/12/21 07/10/21 [Symbicort 80-4.5 Mcg Inhaler] Meclizine [Antivert] 12.5 mg PO BID PRN 07/12/21 07/12/21 07/10/21 Metformin HCl [metFORMIN] 1,000 mg PO BID 07/12/21 07/12/21 07/10/21 Montelukast [Singulair] 10 mg PO QPM 07/12/21 07/12/21 07/10/21 Omeprazole 40 mg PO QDAY 07/12/21 07/12/21 07/10/21 Valsartan/Hydrochlorothiazide 1 tab PO QDAY 07/12/21 07/12/21 07/10/21 [Valsartan-Hctz 320-25 mg Tab] Previous Rx's Medication Instructions Recorded Last Taken Type amLODIPine 10 mg PO DAILY #30 tablet 04/24/20 07/10/21 Rx Apixaban [Eliquis] 5 mg PO DAILY #30 07/12/21 Unknown Rx Oxycodone HCl/Acetaminophen 1 each PO Q6HR PRN #30 07/12/21 Unknown Rx [Percocet 10/325 mg] Allergies Allergy/AdvReac Type Severity Reaction Status Date / Time LOBSTER AdvReac Itching Uncoded 04/19/20 11:38 ED Review of Systems ROS: Stated complaint: HYPERGLYCEMIA/MALAISE Other details as noted in HPI Constitutional: denies: chills, fever Eyes: denies: eye pain, eye discharge, vision change ENT: denies: ear pain, throat pain Respiratory: denies: cough, shortness of breath, wheezing Cardiovascular: denies: chest pain, palpitations Endocrine: no symptoms reported Gastrointestinal: denies: abdominal pain, nausea, diarrhea Genitourinary: denies: urgency, dysuria, discharge Musculoskeletal: denies: back pain, joint swelling, arthralgia Skin: denies: rash, lesions Neurological: denies: headache, weakness, paresthesias Psychiatric: denies: anxiety, depression Hematological/Lymphatic: denies: easy bleeding, easy bruising ED Past Medical Hx - Past Medical History Previous Medical History?: Yes Hx Hypertension: Yes Hx Diabetes: Yes Hx GERD: Yes Hx Sickle Cell Disease: Yes (?trait) Hx Arthritis: Yes (ANNY. KNEES,FEET,BACK) Hx Headaches / Migraines: Yes Hx Seizures: No Hx Asthma: Yes (INHALER PRN ) Hx HIV: No - Surgical History Hx Internal Defibrillator: No - Social History Smoking Status: Never Smoker - Medications Home Medications: Home Medications Medication Instructions Recorded Confirmed Last Taken Type amLODIPine 10 mg PO DAILY #30 tablet 04/24/20 07/11/21 07/10/21 Rx Ferrous Sulfate [Iron 325 MG] 325 mg PO DAILY 07/09/21 07/11/21 07/10/21 History ALBUTEROL NEB's [Proventil 0.083% 2.5 mg IH TID PRN 07/12/21 07/12/21 Unknown History NEBS] Apixaban [Eliquis] 5 mg PO DAILY #30 07/12/21 Unknown Rx Budesonide/Formoterol Fumarate 2 puff IH BID 07/12/21 07/12/21 07/10/21 History [Symbicort 80-4.5 Mcg Inhaler] Meclizine [Antivert] 12.5 mg PO BID PRN 07/12/21 07/12/21 07/10/21 History Metformin HCl [metFORMIN] 1,000 mg PO BID 07/12/21 07/12/21 07/10/21 History Montelukast [Singulair] 10 mg PO QPM 07/12/21 07/12/21 07/10/21 History Omeprazole 40 mg PO QDAY 07/12/21 07/12/21 07/10/21 History Oxycodone HCl/Acetaminophen 1 each PO Q6HR PRN #30 07/12/21 Unknown Rx [Percocet 10/325 mg] Valsartan/Hydrochlorothiazide 1 tab PO QDAY 07/12/21 07/12/21 07/10/21 History [Valsartan-Hctz 320-25 mg Tab] ED Physical Exam - General Limitations: No Limitations General appearance: alert, in no apparent distress - Head Head exam: Present: atraumatic, normocephalic - Eye Eye exam: Present: normal appearance - ENT ENT exam: Present: mucous membranes moist - Neck Neck exam: Present: normal inspection - Respiratory Respiratory exam: Present: normal lung sounds bilaterally. Absent: respiratory distress - Cardiovascular Cardiovascular Exam: Present: regular rate, normal rhythm. Absent: systolic murmur, diastolic murmur, rubs, gallop - GI/Abdominal GI/Abdominal exam: Present: soft, normal bowel sounds - Extremities Exam Extremities exam: Present: normal inspection - Expanded Lower Extremity Exam Left Knee exam: Present: swelling - Back Exam Back exam: Present: normal inspection - Neurological Exam Neurological exam: Present: alert, oriented X3 - Psychiatric Psychiatric exam: Present: normal affect, normal mood - Skin Skin exam: Present: warm, dry, intact, normal color. Absent: rash ED Course Vital Signs 07/26/21 16:43 Temperature 99.2 F Pulse Rate 97 H Respiratory 17 Rate Blood Pressure 134/82 [Left] O2 Sat by Pulse 97 Oximetry ED Medical Decision Making - Lab Data Result diagrams: 07/26/21 22:01 07/26/21 22:01 - Radiology Data Radiology results: report reviewed, image reviewed - Medical Decision Making work up showed BS of 200 , fludis given US showed no DVT vss no distress Critical care attestation.: If time is entered above; I have spent that time in minutes in the direct care of this critically ill patient, excluding procedure time. ED Disposition Clinical Impression: Hyperglycemia Disposition: 01 HOME / SELF CARE / HOMELESS Is pt being admited?: No Does the pt Need Aspirin: No Condition: Stable
[2021-07-27 02:28] VITALS: BP 146/82
--- NOTE | 2021-07-29 09:40 | Vascular Lab Report ---
DUPLEX DOPPLER LOWER EXTREMITY VEINS, LEFT INDICATION / CLINICAL INFORMATION: Pain in left lower extremity. TECHNIQUE: Duplex doppler imaging was performed through the veins of the left lower extremity using v enous compression and other maneuvers. COMPARISON: None available. FINDINGS: LEFT COMMON FEMORAL VEIN: Negative. LEFT FEMORAL VEIN: Negative. LEFT POPLITEAL VEIN: Negative. LEFT CALF VEINS: Negative. ADDITIONAL FINDINGS: None. IMPRESSION: 1. No sonographic evidence for DVT in the left lower extremity. Signer Name: Thomas Brown MD Signed: 07/26/2021 11:24 PM Workstation Name: [id number]
== END 2021-07-27 07:20 | disposition home or self-care (01) ==
LOC: ED 16:38
DX: E11.65 Type 2 diabetes mellitus with hyperglycemia (principal); I10 Essential (primary) hypertension; M19.90 Unspecified osteoarthritis, unspecified site; J45.909 Unspecified asthma, uncomplicated; K21.9 Gastro-esophageal reflux disease without esophagitis; Z91.09 Other allergy status, other than to drugs and biological substances; Z79.899 Other long term (current) drug therapy
CPT/HCPCS: 36415; 71045; 80053; 82962; 83735; 85025; 85610; 99284

== ENCOUNTER 2021-08-12 14:36 | Outpatient (CLI) | payer MEDICARE | END 2021-08-12 14:37 | disposition home or self-care (01) | LOC: LAB 14:36 | PROVIDERS: ATTEND Orthopaedic Surgery | DX: M25.462 Effusion, left knee (principal) | CPT/HCPCS: 87076; 87116; 87186 ==

== ENCOUNTER 2021-09-17 11:51 | Outpatient (CLI) | payer MEDICARE ==
--- NOTE | 2021-09-17 15:50 | XRay Report ---
LEFT KNEE 2 VIEWS INDICATION: M17.12 PAIN LEFT KNEE. COMPARISON: 07/26/2021 IMPRESSION: There is moderate anterior soft tissue swelling which is unchanged. A moderate joint eff usion is suspected. Left knee arthroplasty has been performed. There is subtle lucency along the fem oral component anteriorly which was not clearly demonstrated on the previous exam. This could indicat e early loosening or infection. The tibial component is unremarkable. Please correlate with the patie nt's clinical presentation and consider further evaluation with triple phase bone scan. LEFT FOOT 3 VIEWS INDICATION: Pain in left foot. COMPARISON: None. IMPRESSION: No acute osseous or soft tissue abnormality. Mild osteoarthritic changes are identifi ed which are most pronounced at the first metatarsophalangeal joint. Spurring is identified at the in sertion of the Achilles tendon and plantar fascia. Signer Name: Erick Blanco Jr, MD Signed: 09/17/2021 3:46 PM Workstation Name: [id number]
== END 2021-09-17 11:52 | disposition home or self-care (01) ==
LOC: XRAY 11:51
PROVIDERS: ATTEND Orthopaedic Surgery
DX: M19.072 Primary osteoarthritis, left ankle and foot (principal); M77.32 Calcaneal spur, left foot; M25.562 Pain in left knee

== ENCOUNTER 2021-10-03 12:24 | Outpatient (CLI) | payer MEDICARE ==
[2021-10-03 13:08] LABS: Hematocrit 28.9 % (30.3-42.9); Hemoglobin 9.5 gm/dl (10.1-14.3); Mean Corpuscular HGB Conc 33 % (30-34); Mean Corpuscular Volume 71 fl (79-97); Platelet Count 367 K/mm3 (140-440); Red Blood Count 4.05 M/mm3 (3.65-5.03)
[2021-10-03 13:11] LABS: Red Cell Distribution Width 20.3 % (13.2-15.2)
[2021-10-03 13:26] LABS: Erythrocyte Sedimentation Rate > 20 mm/Hr (0-20)
== END 2021-10-03 12:25 | disposition home or self-care (01) ==
LOC: LAB 12:24
PROVIDERS: ATTEND Orthopaedic Surgery
DX: T84.69XA Infection and inflammatory reaction due to internal fixation device of other site, initial encounter (principal); X58.XXXA Exposure to other specified factors, initial encounter
CPT/HCPCS: 36415; 85027; 85652; 86140

== ENCOUNTER 2021-10-25 13:22 | Outpatient (CLI) | payer MEDICARE ==
--- NOTE | 2021-10-25 15:39 | Vascular Lab Report ---
DUPLEX DOPPLER LOWER EXTREMITY VEINS, LEFT INDICATION / CLINICAL INFORMATION: PAIN IN LT.KNEE. TECHNIQUE: Duplex doppler imaging was performed through the veins of the left lower extremity using venous compr ession and other maneuvers. COMPARISON: None available. FINDINGS: LEFT COMMON FEMORAL VEIN: Negative. LEFT FEMORAL VEIN: Negative. LEFT POPLITEAL VEIN: Negative. LEFT CALF VEINS: Negative. ADDITIONAL FINDINGS: 2.5 cm left popliteal cyst IMPRESSION: 1. No sonographic evidence for DVT in the left lower extremity. 2. 2.5 cm left popliteal cyst Signer Name: Amrit Mejia MD Signed: 10/25/2021 3:34 PM Workstation Name: [id number]
[2021-10-25 15:41] LABS: Basophils # (Auto) 0.1 K/mm3 (0.0-0.1); Basophils % (Auto) 0.9 % (0.0-1.8); Eosinophils # (Auto) 0.2 K/mm3 (0.0-0.4); Eosinophils % (Auto) 2.8 % (0.0-4.3); Hematocrit 30.3 % (30.3-42.9); Hemoglobin 9.8 gm/dl (10.1-14.3); Lymphocytes # (Auto) 2.5 K/mm3 (1.2-5.4); Lymphocytes % (Auto) 30.5 % (13.4-35.0); Mean Corpuscular HGB Conc 32 % (30-34); Monocytes # (Auto) 0.7 K/mm3 (0.0-0.8); Monocytes % (Auto) 8.1 % (0.0-7.3); Platelet Count 427 K/mm3 (140-440); Red Blood Count 4.35 M/mm3 (3.65-5.03)
[2021-10-25 15:43] LABS: Mean Corpuscular Volume 70 fl (79-97); Red Cell Distribution Width 20.6 % (13.2-15.2)
[2021-10-25 16:25] LABS: Alanine Aminotransferase 6 units/L (7-56); Albumin 3.7 g/dL (3.9-5); BUN/Creatinine Ratio 18; Blood Urea Nitrogen 16 mg/dL (7-17); Calcium 9.7 mg/dL (8.4-10.2); Hemolysis Index 0
[2021-10-25 16:28] LABS: Erythrocyte Sedimentation Rate 55 mm/Hr (0-20)
--- NOTE | 2021-10-25 17:45 | XRay Report ---
LEFT KNEE 2 VIEW(S) INDICATION / CLINICAL INFORMATION: PAIN IN LEFT KNEE COMPARISON: 09/17/2021 FINDINGS: BONES / JOINT(S): Left knee arthroplasty with increasing lucency surrounding the anterior aspect of t he femoral component best seen on lateral views. Additionally there is increasing irregularity within the articular surface of the patella. SOFT TISSUES: Moderate suprapatellar effusion. ADDITIONAL FINDINGS: None. IMPRESSION: 1. Increasing lucency and cortical irregularity along the anterior femoral component of the left knee arthroplasty and articular surface of the patella, concerning for hardware loosening and/or infectio n. 2. Moderate suprapatellar effusion. Signer Name: Ronnell Boyer MD Signed: 10/25/2021 5:41 PM Workstation Name: [id number]
== END 2021-10-25 13:23 | disposition home or self-care (01) ==
LOC: VAS 13:22 → LAB 13:22 → VAS 13:23
PROVIDERS: ATTEND Orthopaedic Surgery
DX: M25.461 Effusion, right knee (principal); M17.12 Unilateral primary osteoarthritis, left knee; M71.22 Synovial cyst of popliteal space [Baker], left knee; T84.69XA Infection and inflammatory reaction due to internal fixation device of other site, initial encounter; Z96.652 Presence of left artificial knee joint; X58.XXXA Exposure to other specified factors, initial encounter
CPT/HCPCS: 36415; 80053; 85025; 85652; 86140; 87116

== ENCOUNTER 2021-10-30 14:10 | Outpatient (CLI) | payer MEDICARE | END 2021-10-30 14:11 | disposition home or self-care (01) | LOC: LAB 14:10 | PROVIDERS: ATTEND Orthopaedic Surgery | DX: T84.69XA Infection and inflammatory reaction due to internal fixation device of other site, initial encounter (principal); M25.462 Effusion, left knee | CPT/HCPCS: 87076; 87116; 87186 ==

== ENCOUNTER 2021-10-31 14:14 | Inpatient (IN) | payer MEDICARE, MEDICAID ==
[2021-10-31] MEDS ORDERED: ACETAMINOPHEN 325 MG TAB PO PRN ×3 (14:18→16:15)
[2021-10-31] MEDS ORDERED: ONDANSETRON 4 MG/2 ML INJ IV PRN ×3 (14:18→16:15)
[2021-10-31] MEDS ORDERED: HYDROmorphone 0.5 MG/0.5 ML INJ IV PRN (14:18)
[2021-10-31] MEDS ORDERED: MORPHINE 2 MG/1 ML INJ IV PRN ×2 (14:25→16:15)
--- NOTE | 2021-10-31 14:32 | History and Physical Report ---
History of Present Illness Date of examination: 10/31/21 Date of admission: 69 y/o female with c/o left knee pain and drainage, PMHx significant for left TKR July...wound cultures taken recently show light growth Staph Aureus along with increasing CRP...will admit for wash-out and removal implants and cement spacers as well IVAB's... Medications and Allergies Allergies Allergy/AdvReac Type Severity Reaction Status Date / Time LOBSTER AdvReac Itching Uncoded 04/19/20 11:38 Home Medications Medication Instructions Recorded Confirmed Last Taken Type amLODIPine 10 mg PO DAILY #30 tablet 04/24/20 07/11/21 07/10/21 Rx Ferrous Sulfate [Iron 325 MG] 325 mg PO DAILY 07/09/21 07/11/21 07/10/21 History ALBUTEROL NEB's [Proventil 0.083% 2.5 mg IH TID PRN 07/12/21 07/12/21 Unknown History NEBS] Apixaban [Eliquis] 5 mg PO DAILY #30 07/12/21 Unknown Rx Budesonide/Formoterol Fumarate 2 puff IH BID 07/12/21 07/12/21 07/10/21 History [Symbicort 80-4.5 Mcg Inhaler] Meclizine [Antivert] 12.5 mg PO BID PRN 07/12/21 07/12/21 07/10/21 History Metformin HCl [metFORMIN] 1,000 mg PO BID 07/12/21 07/12/21 07/10/21 History Montelukast [Singulair] 10 mg PO QPM 07/12/21 07/12/21 07/10/21 History Omeprazole 40 mg PO QDAY 07/12/21 07/12/21 07/10/21 History Oxycodone HCl/Acetaminophen 1 each PO Q6HR PRN #30 07/12/21 Unknown Rx [Percocet 10/325 mg] Valsartan/Hydrochlorothiazide 1 tab PO QDAY 07/12/21 07/12/21 07/10/21 History [Valsartan-Hctz 320-25 mg Tab] Active Meds: Active Medications Acetaminophen (Acetaminophen 325 Mg Tab) 650 mg PO Q4H PRN PRN Reason: Pain MILD(1-3)/Fever >100.5/[place] Acetaminophen (Acetaminophen 325 Mg Tab) 650 mg PO Q4H PRN PRN Reason: Pain MILD(1-3)/Fever >100.5/[place] Hydromorphone HCl (Hydromorphone 0.5 Mg/0.5 Ml Inj) 0.5 mg IV Q3H PRN PRN Reason: Pain , Severe (7-10) Ibuprofen (Ibuprofen 600 Mg Tab) 600 mg PO Q6H PRN PRN Reason: Pain, Mild (1-3) Morphine Sulfate (Morphine 2 Mg/1 Ml Inj) 2 mg IV Q4H PRN PRN Reason: Pain, Moderate (4-6) Ondansetron HCl (Ondansetron 4 Mg/2 Ml Inj) 4 mg IV Q8H PRN PRN Reason: Nausea And Vomiting Ondansetron HCl (Ondansetron 4 Mg/2 Ml Inj) 4 mg IV Q8H PRN PRN Reason: Nausea And Vomiting Sodium Chloride (Sodium Chloride 0.9% 10 Ml Flush Syringe) 10 ml IV BID LIZBETH Sodium Chloride (Sodium Chloride 0.9% 10 Ml Flush Syringe) 10 ml IV PRN PRN PRN Reason: LINE FLUSH Sodium Chloride (Sodium Chloride 0.9% 10 Ml Flush Syringe) 10 ml IV BID LIZBETH Sodium Chloride (Sodium Chloride 0.9% 10 Ml Flush Syringe) 10 ml IV PRN PRN PRN Reason: LINE FLUSH Physical Examination - Physical exam Narrative exam: left knee - + drainage noted at inferior margin, no redness/erythema, passive ROM ok, distal n/v intact Eyes: PERRL ENT: Positive: clear oral mucosa Respiratory effort: normal Respiratory: bilateral: CTA Rhythm: regular Heart Sounds: Positive: S1 & S2 General gastrointestinal: Positive: soft, non-tender, non-distended, normal bowel sounds Integumentary: clear, warm, dry Neurologic: Positive: CNII-XII intact, moves all extremities, gait normal. Negative: focal deficits - Cervical Spine Neck pain: none Tenderness with palpation: none Full ROM: yes ROM: flexion: normal ROM: extension: normal ROM: rotation right: normal ROM: rotation left: normal ROM: lateral flexion right: normal ROM: lateral flexion left: normal - Lumbar Spine Back pain: none Tenderness with palpation: none Appearance: normal Full ROM: yes ROM: flexion: normal ROM: extension: normal ROM: rotation right: normal ROM: rotation left: normal ROM: lateral flexion right: normal ROM: lateral flexion left: normal Results - Labs Labs: All other labs normal. Assessment and Plan infected left total knee replacement plan - I&D/removal implants and insertion cement spacers IVAB x 6-8 wks....
[2021-10-31 18:32] LABS: Basophils % (Auto) 0.5 % (0.0-1.8); Eosinophils # (Auto) 0.3 K/mm3 (0.0-0.4); Eosinophils % (Auto) 3.9 % (0.0-4.3); Hematocrit 28.6 % (30.3-42.9); Hemoglobin 9.1 gm/dl (10.1-14.3); Lymphocytes # (Auto) 1.4 K/mm3 (1.2-5.4); Lymphocytes % (Auto) 20.9 % (13.4-35.0); Mean Corpuscular HGB Conc 32 % (30-34); Mean Corpuscular Volume 70 fl (79-97); Monocytes # (Auto) 0.8 K/mm3 (0.0-0.8); Monocytes % (Auto) 12.3 % (0.0-7.3); Platelet Count 377 K/mm3 (140-440); Red Blood Count 4.08 M/mm3 (3.65-5.03)
[2021-10-31 18:38] LABS: Red Cell Distribution Width 21.1 % (13.2-15.2)
[2021-10-31 18:40] LABS: BUN/Creatinine Ratio 18; Blood Urea Nitrogen 14 mg/dL (7-17); Calcium 9.3 mg/dL (8.4-10.2); Hemolysis Index 0
[2021-10-31] MEDS ORDERED: MECLIZINE 12.5 MG TAB PO PRN (20:56)
[2021-10-31] MEDS ORDERED: ALBUTEROL 2.5 MG/3 ML NEBU IH PRN (20:56)
[2021-10-31] MEDS ORDERED: NON-FORMULARY EACH (Oxycodone Hcl/Acetaminophen [Percocet 10/325 Mg] 1 EACH Tablet) PO PRN (20:56)
[2021-10-31] MEDS ORDERED: [UNRECOGNIZED DRUG - OTHER] PO SCH (21:00)
[2021-10-31] MEDS ORDERED: NON-FORMULARY EACH (Omeprazole [Omeprazole] 40 MG Capsule.Dr) PO SCH (21:00)
[2021-10-31] MEDS ORDERED: HYDROCHLOROTHIAZIDE PO SCH (21:00)
[2021-10-31] MEDS ORDERED: VALSARTAN PO SCH (21:00)
[2021-10-31] MEDS ORDERED: NON-FORMULARY EACH (Apixaban 5 MG Tablet) PO SCH (21:00)
--- NOTE | 2021-10-31 21:00 | History and Physical Report ---
History of Present Illness Date of examination: 10/31/21 Date of admission: 10/31/21 16:04 Chief complaint: Left knee swelling and pain for 1 month History of present illness: 69 y/o female with c/o left knee pain and drainage, PMHx significant for left TKR July...wound cultures taken recently show light growth Staph Aureus along with increasing CRP...will admit for wash-out and removal implants and cement spacers and IV antibiotics Past History Past Medical History: GERD, hypertension, hyperlipidemia Past Surgical History: total knee replacement Social history: lives with family, full code Family history: hypertension Medications and Allergies Allergies Allergy/AdvReac Type Severity Reaction Status Date / Time LOBSTER AdvReac Itching Uncoded 04/19/20 11:38 Home Medications Medication Instructions Recorded Confirmed Last Taken Type amLODIPine 10 mg PO DAILY #30 tablet 04/24/20 07/11/21 07/10/21 Rx Ferrous Sulfate [Iron 325 MG] 325 mg PO DAILY 07/09/21 07/11/21 07/10/21 History ALBUTEROL NEB's [Proventil 0.083% 2.5 mg IH TID PRN 07/12/21 07/12/21 Unknown History NEBS] Apixaban [Eliquis] 5 mg PO DAILY #30 07/12/21 Unknown Rx Budesonide/Formoterol Fumarate 2 puff IH BID 07/12/21 07/12/21 07/10/21 History [Symbicort 80-4.5 Mcg Inhaler] Meclizine [Antivert] 12.5 mg PO BID PRN 07/12/21 07/12/21 07/10/21 History Metformin HCl [metFORMIN] 1,000 mg PO BID 07/12/21 07/12/21 07/10/21 History Montelukast [Singulair] 10 mg PO QPM 07/12/21 07/12/21 07/10/21 History Omeprazole 40 mg PO QDAY 07/12/21 07/12/21 07/10/21 History Oxycodone HCl/Acetaminophen 1 each PO Q6HR PRN #30 07/12/21 Unknown Rx [Percocet 10/325 mg] Valsartan/Hydrochlorothiazide 1 tab PO QDAY 07/12/21 07/12/21 07/10/21 History [Valsartan-Hctz 320-25 mg Tab] Active Meds: Active Medications Acetaminophen (Acetaminophen 325 Mg Tab) 650 mg PO Q4H PRN PRN Reason: Pain MILD(1-3)/Fever >100.5/[place] Hydromorphone HCl (Hydromorphone 0.5 Mg/0.5 Ml Inj) 0.5 mg IV Q3H PRN PRN Reason: Pain , Severe (7-10) Ibuprofen (Ibuprofen 600 Mg Tab) 600 mg PO Q6H PRN PRN Reason: Pain, Mild (1-3) Morphine Sulfate (Morphine 2 Mg/1 Ml Inj) 2 mg IV Q4H PRN PRN Reason: Pain, Moderate (4-6) Last Admin: 10/31/21 20:00 Dose: 2 mg Ondansetron HCl (Ondansetron 4 Mg/2 Ml Inj) 4 mg IV Q8H PRN PRN Reason: Nausea And Vomiting Sodium Chloride (Sodium Chloride 0.9% 10 Ml Flush Syringe) 10 ml IV BID LIZBETH Sodium Chloride (Sodium Chloride 0.9% 10 Ml Flush Syringe) 10 ml IV PRN PRN PRN Reason: LINE FLUSH Review of Systems All systems: negative Exam - Constitutional Vitals: Temp Pulse Resp BP Pulse Ox 16 16 L 10/31/21 20:00 10/31/21 17:32 General appearance: Present: no acute distress, well-nourished - EENT Eyes: Present: PERRL ENT: hearing intact, clear oral mucosa - Neck Neck: Present: supple, normal ROM - Respiratory Respiratory effort: normal Respiratory: bilateral: CTA - Cardiovascular Heart rate: 78 Rhythm: regular Heart Sounds: Present: S1 & S2. Absent: rub, click - Extremities Extremities: no ischemia, pulses intact, pulses symmetrical, No edema, abnormal (Left knee swollen and tender) Extremity abnormal: tenderness, other (Left knee swollen and tender) Peripheral Pulses: within normal limits - Abdominal General gastrointestinal: Present: soft, non-tender, non-distended, normal bowel sounds Female genitourinary: Present: normal - Integumentary Integumentary: Present: clear, warm, dry - Musculoskeletal Musculoskeletal: gait normal, strength equal bilaterally - Psychiatric Psychiatric: appropriate mood/affect, intact judgment & insight - Neurologic Neurologic: CNII-XII intact, moves all extremities - Allied Health Allied health notes reviewed: nursing, case management Results - Labs CBC & Chem 7: 10/31/21 17:47 10/31/21 17:47 Labs: Laboratory Last Values WBC 6.9 K/mm3 (4.5-11.0) 10/31/21 17:47 RBC 4.08 M/mm3 (3.65-5.03) 10/31/21 17:47 Hgb 9.1 gm/dl (10.1-14.3) L 10/31/21 17:47 Hct 28.6 % (30.3-42.9) L 10/31/21 17:47 MCV 70 fl (79-97) L 10/31/21 17:47 MCH 22 pg (28-32) L 10/31/21 17:47 MCHC 32 % (30-34) 10/31/21 17:47 RDW 21.1 % (13.2-15.2) H 10/31/21 17:47 Plt Count 377 K/mm3 (140-440) 10/31/21 17:47 Lymph % (Auto) 20.9 % (13.4-35.0) 10/31/21 17:47 Grand % (Auto) 12.3 % (0.0-7.3) H 10/31/21 17:47 Eos % (Auto) 3.9 % (0.0-4.3) 10/31/21 17:47 Baso % (Auto) 0.5 % (0.0-1.8) 10/31/21 17:47 Lymph # (Auto) 1.4 K/mm3 (1.2-5.4) 10/31/21 17:47 Grand # (Auto) 0.8 K/mm3 (0.0-0.8) 10/31/21 17:47 Eos # (Auto) 0.3 K/mm3 (0.0-0.4) 10/31/21 17:47 Baso # (Auto) 0.0 K/mm3 (0.0-0.1) 10/31/21 17:47 Seg Neutrophils % 62.4 % (40.0-70.0) 10/31/21 17:47 Seg Neutrophils # 4.3 K/mm3 (1.8-7.7) 10/31/21 17:47 Sodium 135 mmol/L (137-145) L 10/31/21 17:47 Potassium 4.1 mmol/L (3.6-5.0) 10/31/21 17:47 Chloride 94.8 mmol/L (98-107) L 10/31/21 17:47 Carbon Dioxide 28 mmol/L (22-30) 10/31/21 17:47 Anion Gap 16 mmol/L 10/31/21 17:47 BUN 14 mg/dL (7-17) 10/31/21 17:47 Creatinine 0.8 mg/dL (0.6-1.2) 10/31/21 17:47 Estimated GFR > 60 ml/min 10/31/21 17:47 BUN/Creatinine Ratio 18 % 10/31/21 17:47 Glucose 106 mg/dL (65-100) H 10/31/21 17:47 Calcium 9.3 mg/dL (8.4-10.2) 10/31/21 17:47 Assessment and Plan Advance Directives: Yes (Full code) VTE prophylaxis?: Chemical Plan of care discussed with patient/family: Yes - Patient Problems (1) HTN (hypertension) Current Visit: No Status: Chronic Qualifiers: Hypertension type: essential hypertension (2) T2DM (type 2 diabetes mellitus) Current Visit: Yes Status: Chronic Qualifiers: 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 mellitus intermediate accountant insulin use: without jail use Plan to address problem: On metformin Accu-Cheks before meals and at bedtime Moderate dose sliding scale insulin coverage (3) Hypertension Current Visit: Yes Status: Chronic Qualifiers: Hypertension type: primary hypertension Qualified Code(s): I10 - Essential (primary) hypertension Plan to address problem: Continue antihypertensives and adjust medications as necessary (4) HLD (hyperlipidemia) Current Visit: No Status: Chronic Qualifiers: Hyperlipidemia type: mixed hyperlipidemia Qualified Code(s): E78.2 - Mixed hyperlipidemia Plan to address problem: Continue statins (5) Infection of total left knee replacement Current Visit: Yes Status: Acute Qualifiers: Encounter type: initial encounter Qualified Code(s): T84.54XA - Infection and inflammatory reaction due to internal left knee prosthesis, initial encounter Plan to address problem: IV antibiotics initiated Knee washout by Dr. Zimmerman and probable removal of spacers (6) DVT prophylaxis Current Visit: No Status: Acute Plan to address problem: On SCDs and GI prophylaxis (7) Advance care planning Current Visit: Yes Status: Acute Plan to address problem: Disease education conducted, care plan discussed, diagnosis discussed and prognosis discussed. Patient acknowledges care plan. +30 minutes. Patient is full code.
[2021-10-31] MEDS: FERROUS SULFATE 325 MG TAB PO SCH (21:13)
[2021-10-31] MEDS: hydroCHLOROthiazide 25 MG TAB PO SCH (21:16)
[2021-10-31] MEDS: PANTOPRAZOLE 40 MG TAB PO SCH (21:17)
[2021-10-31] MEDS: APIXABAN 5 MG TAB PO SCH (21:17)
[2021-10-31] MEDS: metFORMIN 500 MG TAB PO SCH (21:18)
[2021-10-31] MEDS ORDERED: NON-FORMULARY EACH (Metformin Hcl [Metformin] 1,000 MG Tablet) PO SCH (22:00)
[2021-10-31] MEDS: VALSARTAN 160MG TAB PO SCH (22:15)
[2021-10-31] MEDS: amLODIPine 10 MG TAB PO SCH (22:18)
[2021-11-01 04:35] LABS: Bacteria,Urine 1+ /HPF (Negative)
[2021-11-01 04:36] LABS: Color,Urine Straw (Yellow)
[2021-11-01] MEDS: HYDROmorphone 0.5 MG/0.5 ML INJ IV PRN ×4 (05:06→23:01)
[2021-11-01] MEDS: BUDESONIDE 0.5 MG/2 ML NEBU IH SCH ×2 (08:13→21:10)
[2021-11-01] MEDS: ARFORMOTEROL 15 MCG/2 ML NEBU IH SCH ×2 (08:21→21:10)
[2021-11-01] MEDS: metFORMIN 500 MG TAB PO SCH ×2 (08:51→20:36)
[2021-11-01] MEDS ORDERED: MIDAZOLAM 2 MG/2 ML INJ ONE (14:26)
[2021-11-01] MEDS ORDERED: propofoL 200 MG/20 ML VIAL IV ONE (14:26)
[2021-11-01] MEDS ORDERED: PHENYLEPHRINE/NS 1,000 MCG/10 ML SYRINGE (OR USE) IV ONE (14:35)
--- NOTE | 2021-11-01 14:40 | Anesthesia Consultation ---
Anesthesia Consult and Med Hx Date of service: 11/01/21 - Pre-Operative Health Status ASA Pre-Surgery Classification: ASA3 Proposed Anesthetic Plan: General - Pulmonary Hx Smoking: No Hx Asthma: Yes (INHALER PRN ) Hx Respiratory Symptoms: No (Poor exercise tolerance) SOB: Yes (SOB WITH ACTIVITY) Hx Sleep Apnea: No ([place]ET[place] PRE SCREEN HIGH RISK) - Cardiovascular System Hx Hypertension: Yes Hx Internal Defibrillator: No - Central Nervous System Hx Neuromuscular Disorder: Yes (Neuropathy. Gout) Hx Seizures: No Hx Back Pain: Yes (WITH SCIATIC PAIN) Hx Psychiatric Problems: No - Gastrointestinal Hx Ulcer: Yes Hx Gastroesophageal Reflux Disease: Yes - Endocrine Hx Insulin Dependent Diabetes: Yes (Poorly controlled) - Hematic Hx Anemia: Yes Hx Sickle Cell Disease: Yes (SC Trait) - Other Systems Hx Cancer: No Hx Obesity: Yes - Additional Comments Anesthesia Medical History Comments: Has been here multiple times
[2021-11-01] MEDS ORDERED: fentaNYL 100 MCG/2 ML INJ ONE (14:41)
[2021-11-01] MEDS ORDERED: ceFAZolin 1 GM VIAL ONE (14:46)
--- NOTE | 2021-11-01 14:59 | Anesthesia Day of Surgery ---
Anesthesia Day of Surgery - Day of Surgery Patient Examined: Yes Patient H&P Reviewed: Yes Patient is NPO: Yes
[2021-11-01] MEDS ORDERED: ONDANSETRON 4 MG/2 ML INJ IV PRN ×2 (15:00→17:50)
[2021-11-01] MEDS ORDERED: HYDROmorphone 0.5 MG/0.5 ML INJ IV PRN (15:00)
[2021-11-01] MEDS ORDERED: HYDROmorphone 1 MG/1 ML INJ ONE ×2 (15:21→16:04)
[2021-11-01] MEDS ORDERED: VANCOMYCIN 1000 MG INJ ONE (15:21)
[2021-11-01] MEDS ORDERED: dexAMETHasone 20 MG/5 ML VIAL ONE (15:23)
[2021-11-01] MEDS ORDERED: SODIUM CHLORIDE 0.9% 50 ML ONE (15:49)
[2021-11-01] MEDS ORDERED: KETOROLAC 30 MG/1 ML INJ ONE ×2 (15:49→17:37)
[2021-11-01] MEDS ORDERED: BUPIVACAINE/PF (0.5%) 5 MG/1 ML 10 ML VIAL INFILTRATI ONE ×2 (15:49→17:21)
[2021-11-01] MEDS ORDERED: SODIUM CHLORIDE 0.9% 100 ML ONE (15:50)
[2021-11-01] MEDS ORDERED: LACTATED RINGERS 1,000 ML ONE ×2 (17:16→19:33)
[2021-11-01] MEDS ORDERED: VANCOMYCIN 1,000 MG/20 ML IV ONE (17:20)
[2021-11-01] MEDS ORDERED: SODIUM CHLORIDE 0.9% IRRIG SOLN 2000 ML IR ONE (17:21)
[2021-11-01] MEDS ORDERED: SODIUM CHLORIDE 0.9% 100 ML IVPB IV ONE (17:22)
[2021-11-01] MEDS ORDERED: KETOROLAC 30 MG/1 ML INJ IV ONE (17:22)
[2021-11-01] MEDS ORDERED: MORPHINE 10 MG/1 ML INJ IM ONE (17:22)
[2021-11-01] MEDS ORDERED: ONDANSETRON 4 MG/2 ML INJ ONE (17:37)
[2021-11-01] MEDS ORDERED: ACETAMINOPHEN 325 MG TAB PO PRN (17:50)
[2021-11-01] MEDS ORDERED: MORPHINE 2 MG/1 ML INJ IV PRN (17:50)
[2021-11-01] MEDS ORDERED: MORPHINE 4 MG/1 ML INJ IV PRN (17:50)
--- NOTE | 2021-11-01 18:00 | Procedure Note ---
Date of procedure: 11/01/21 Pre-op diagnosis: infected left total knee replacement Post-op diagnosis: same Procedure: Irrigation and debridement left knee with removal implants and placement of cement spacers Procedure Patient was brought to the OR placed on the OR table in supine position following induction intubation anesthesia the patient's left lower extremity was prepped and draped in the usual sterile manner a timeout procedure was done to identify the patient and the correct operative site with the knee flexed at 90 degrees a tourniquet was then inflated to 300 mmHg using the previous incision this was taken down sharply through skin subcu patient was noted to have a small draining site along the inferior medial border of the incision after careful dissection a parapatellar incision was made the patella was everted and the joint was inspected patient was noted to have some purulent material along the superior aspect of the tibia along the medial border the implants however appears to be firmly fixed therefore using various instruments such as osteotomes bone tamps and mallet both the femoral and tibial components were removed without fracturing next using curettes and rongeurs the bone and cement were removed next using pulse pulse lavage irrigation the wound was thoroughly irrigated and again debridement was performed on the soft tissue and bony structures following this gentamicin impregnated cement was mixed and placed in our template to harden next of vancomycin beads were also prepared and inserted into the wound along the posterior capsule the antibiotic spaces were placed in both the tibia and distal femur and was secured by way of temporary bone cement as well the knee appeared to be stable in both flexion and extension following this the wound was then closed in a standard routine fashion postop dressings were applied the patient tolerated procedure there were no complications and she was sent to postanesthesia recovery in stable condition Anesthesia: GETA Surgeon: JOSE MARTEL (Porfirio Wallace, 1st assist) Estimated blood loss: 50-100ml Pathology: list (wound and tissue sent C&S) Specimen disposition: to lab (Bony and synovial tissue were sent to pathology and microbiology) Condition: stable Disposition: PACU
[2021-11-01] MEDS: hydroCHLOROthiazide 25 MG TAB PO SCH (20:34)
[2021-11-01] MEDS: FERROUS SULFATE 325 MG TAB PO SCH (20:34)
[2021-11-01] MEDS: VALSARTAN 160MG TAB PO SCH (20:34)
[2021-11-01] MEDS: amLODIPine 10 MG TAB PO SCH (20:34)
[2021-11-01] MEDS: PANTOPRAZOLE 40 MG TAB PO SCH (20:34)
[2021-11-01] MEDS: MONTELUKAST 10 MG TAB PO SCH (20:39)
[2021-11-01] MEDS: APIXABAN 5 MG TAB PO SCH (20:39)
[2021-11-01] MEDS: ceFAZolin/NS 1 GM/50 ML 1 GM/50 ML BAG IV SCH (22:59)
[2021-11-01] MEDS: KETOROLAC 30 MG/1 ML INJ IV PRN (23:02)
[2021-11-02] MEDS: oxyCODONE 5 MG TAB PO PRN (03:53)
[2021-11-02 05:24] LABS: Hematocrit 25.3 % (30.3-42.9); Hemoglobin 8.3 gm/dl (10.1-14.3)
[2021-11-02 06:21] LABS: Blood Urea Nitrogen 15 mg/dL (7-17); Calcium 8.6 mg/dL (8.4-10.2); Hemolysis Index 0
[2021-11-02 06:33] LABS: BUN/Creatinine Ratio 25
[2021-11-02] MEDS: ceFAZolin/NS 1 GM/50 ML 1 GM/50 ML BAG IV SCH (06:38)
[2021-11-02] MEDS: BUDESONIDE 0.5 MG/2 ML NEBU IH SCH ×2 (07:57→21:28)
[2021-11-02] MEDS: ARFORMOTEROL 15 MCG/2 ML NEBU IH SCH ×2 (07:57→21:27)
[2021-11-02] MEDS: metFORMIN 500 MG TAB PO SCH ×2 (08:00→17:35)
[2021-11-02] MEDS: hydroCHLOROthiazide 25 MG TAB PO SCH (09:33)
[2021-11-02] MEDS: PANTOPRAZOLE 40 MG TAB PO SCH (09:33)
[2021-11-02] MEDS: FERROUS SULFATE 325 MG TAB PO SCH (09:33)
[2021-11-02] MEDS: amLODIPine 10 MG TAB PO SCH (09:34)
[2021-11-02] MEDS: VALSARTAN 160MG TAB PO SCH (09:35)
[2021-11-02] MEDS: ENOXAPARIN 40 MG/0.4 ML INJ SUB-Q SCH (09:35)
--- NOTE | 2021-11-02 10:31 | Progress Note ---
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 insulin use: without skilled nursing use Plan to address problem: On metformin Accu-Cheks before meals and at bedtime Moderate dose sliding scale insulin coverage (3) Hypertension Current Visit: Yes Status: Chronic Qualifiers: Hypertension type: primary hypertension Qualified Code(s): I10 - Essential (primary) hypertension Plan to address problem: Continue antihypertensives and adjust medications as necessary (4) HLD (hyperlipidemia) Current Visit: No Status: Chronic Qualifiers: Hyperlipidemia type: mixed hyperlipidemia Qualified Code(s): E78.2 - Mixed hyperlipidemia Plan to address problem: Continue statins (5) Infection of total left knee replacement Current Visit: Yes Status: Acute Qualifiers: Encounter type: initial encounter Qualified Code(s): T84.54XA - Infection and inflammatory reaction due to internal left knee prosthesis, initial encounter Plan to address problem: IV antibiotics initiated Knee washout by Dr. Zimmerman and probable removal of spacers (6) DVT prophylaxis Current Visit: No Status: Acute Plan to address problem: On SCDs and GI prophylaxis (7) Advance care planning Current Visit: Yes Status: Acute Plan to address problem: Disease education conducted, care plan discussed, diagnosis discussed and prognosis discussed. Patient acknowledges care plan. +30 minutes. Patient is full code. Subjective Date of service: 11/01/21 Objective - Constitutional Vitals: Vital Signs - 12hr 11/01/21 11/02/21 11/02/21 23:12 05:19 07:57 Temperature 97.9 F 98.3 F Pulse Rate 82 84 Pulse Rate [ 84 Anterior Bilateral Throughout] Respiratory 20 20 Rate Respiratory 18 Rate [Anterior Bilateral Throughout] Blood Pressure 119/70 113/61 Blood Pressure [Left] O2 Sat by Pulse 99 100 100 Oximetry 11/02/21 09:41 Temperature Pulse Rate Pulse Rate [ Anterior Bilateral Throughout] Respiratory Rate Respiratory Rate [Anterior Bilateral Throughout] Blood Pressure Blood Pressure 119/62 [Left] O2 Sat by Pulse Oximetry General appearance: Present: no acute distress, well-nourished - EENT Eyes: PERRL, EOM intact ENT: hearing intact, clear oral mucosa Ears: bilateral: normal - Neck Neck: supple, normal ROM - Respiratory Respiratory effort: normal Respiratory: bilateral: CTA - Breasts Breasts: normal - Cardiovascular Rhythm: regular Heart Sounds: Present: S1 & S2. Absent: gallop, rub Extremities: pulses intact, No edema, normal color, Full ROM - Gastrointestinal General gastrointestinal: Present: soft, non-tender, non-distended, normal bowel sounds - Genitourinary Female genitourinary: normal - Integumentary Integumentary: clear, warm, dry - Musculoskeletal Musculoskeletal: 1, strength equal bilaterally - Neurologic Neurologic: moves all extremities - Psychiatric Psychiatric: memory intact, appropriate mood/affect, intact judgment & insight - Labs CBC & Chem 7: 11/02/21 05:10 11/02/21 05:10 Labs: Abnormal lab results 11/01/21 11/01/21 11/01/21 Range/Units 11:30 19:24 20:54 Hgb (10.1-14.3) gm/dl Hct (30.3-42.9) % Sodium (137-145) mmol/L Chloride (98-107) mmol/L Glucose (65-100) mg/dL POC Glucose 130 H 209 H 211 H (70-105) mg/dL 11/02/21 11/02/21 11/02/21 Range/Units 05:10 05:10 07:13 Hgb 8.3 L (10.1-14.3) gm/dl Hct 25.3 L (30.3-42.9) % Sodium 133 L (137-145) mmol/L Chloride 97.3 L (98-107) mmol/L Glucose 235 H (65-100) mg/dL POC Glucose 235 H (70-105) mg/dL
--- NOTE | 2021-11-02 14:05 | Progress Note ---
Assessment and Plan - Patient Problems (1) HTN (hypertension) Current Visit: No Status: Chronic Qualifiers: Hypertension type: primary hypertension Qualified Code(s): I10 - Essential (primary) hypertension Plan to address problem: Continue antihypertensives and adjust medications as necessary (2) T2DM (type 2 diabetes mellitus) Current Visit: Yes Status: Chronic Qualifiers: Diabetes mellitus long term care pharmacist insulin use: without fpc use (3) Hypertension Current Visit: Yes Status: Chronic Qualifiers: Hypertension type: primary hypertension Qualified Code(s): I10 - Essential (primary) hypertension (4) HLD (hyperlipidemia) Current Visit: No Status: Chronic Qualifiers: Hyperlipidemia type: mixed hyperlipidemia Qualified Code(s): E78.2 - Mixed hyperlipidemia (5) Infection of total left knee replacement Current Visit: Yes Status: Acute Qualifiers: Encounter type: initial encounter Qualified Code(s): T84.54XA - Infection and inflammatory reaction due to internal left knee prosthesis, initial encounter (6) DVT prophylaxis Current Visit: No Status: Acute (7) Advance care planning Current Visit: Yes Status: Acute Subjective Date of service: 11/02/21 Objective - Constitutional Vitals: Vital Signs - 12hr 11/02/21 11/02/21 11/02/21 05:19 07:57 09:41 Temperature 98.3 F Pulse Rate 84 Pulse Rate [ 84 Anterior Bilateral Throughout] Respiratory 20 Rate Respiratory 18 Rate [Anterior Bilateral Throughout] Blood Pressure 113/61 Blood Pressure 119/62 [Left] O2 Sat by Pulse 100 100 Oximetry 11/02/21 11/02/21 10:00 12:00 Temperature 98.0 F Pulse Rate 95 H Pulse Rate [ Anterior Bilateral Throughout] Respiratory 20 Rate Respiratory Rate [Anterior Bilateral Throughout] Blood Pressure 120/67 Blood Pressure [Left] O2 Sat by Pulse 99 98 Oximetry General appearance: Present: no acute distress, well-nourished - EENT Eyes: PERRL, EOM intact ENT: hearing intact, clear oral mucosa Ears: bilateral: normal - Neck Neck: supple, normal ROM - Respiratory Respiratory effort: normal Respiratory: bilateral: CTA - Breasts Breasts: normal - Cardiovascular Rhythm: regular Heart Sounds: Present: S1 & S2. Absent: gallop, rub Extremities: pulses intact, No edema, normal color, Full ROM - Gastrointestinal General gastrointestinal: Present: soft, non-tender, non-distended, normal bowel sounds - Genitourinary Female genitourinary: normal - Integumentary Integumentary: clear, warm, dry - Musculoskeletal Musculoskeletal: 1, strength equal bilaterally - Neurologic Neurologic: moves all extremities - Psychiatric Psychiatric: memory intact, appropriate mood/affect, intact judgment & insight - Labs CBC & Chem 7: 11/02/21 05:10 11/02/21 05:10 Labs: Abnormal lab results 11/01/21 11/01/21 11/01/21 Range/Units 11:30 19:24 20:54 Hgb (10.1-14.3) gm/dl Hct (30.3-42.9) % Sodium (137-145) mmol/L Chloride (98-107) mmol/L Glucose (65-100) mg/dL POC Glucose 130 H 209 H 211 H (70-105) mg/dL 11/02/21 11/02/21 11/02/21 Range/Units 05:10 05:10 07:13 Hgb 8.3 L (10.1-14.3) gm/dl Hct 25.3 L (30.3-42.9) % Sodium 133 L (137-145) mmol/L Chloride 97.3 L (98-107) mmol/L Glucose 235 H (65-100) mg/dL POC Glucose 235 H (70-105) mg/dL
--- NOTE | 2021-11-02 14:15 | Progress Note ---
Assessment and Plan s/p I&D, removal of implants and insertion of cement spacers left knee will consult ID and PT... Subjective Date of service: 11/02/21 Interval history: states knee feeling somewhat better after I&D... Objective Vital signs: Vital Signs - 12hr 11/02/21 11/02/21 11/02/21 05:19 07:57 09:41 Temperature 98.3 F Pulse Rate 84 Pulse Rate [ 84 Anterior Bilateral Throughout] Respiratory 20 Rate Respiratory 18 Rate [Anterior Bilateral Throughout] Blood Pressure 113/61 Blood Pressure 119/62 [Left] O2 Sat by Pulse 100 100 Oximetry 11/02/21 11/02/21 10:00 12:00 Temperature 98.0 F Pulse Rate 95 H Pulse Rate [ Anterior Bilateral Throughout] Respiratory 20 Rate Respiratory Rate [Anterior Bilateral Throughout] Blood Pressure 120/67 Blood Pressure [Left] O2 Sat by Pulse 99 98 Oximetry Incision: draining Weight bearing status: partial - Labs CBC & BMP: 11/02/21 05:10 11/02/21 05:10 Labs: Abnormal lab results 11/01/21 11/01/21 11/01/21 Range/Units 11:30 19:24 20:54 Hgb (10.1-14.3) gm/dl Hct (30.3-42.9) % Sodium (137-145) mmol/L Chloride (98-107) mmol/L Glucose (65-100) mg/dL POC Glucose 130 H 209 H 211 H (70-105) mg/dL 11/02/21 11/02/21 11/02/21 Range/Units 05:10 05:10 07:13 Hgb 8.3 L (10.1-14.3) gm/dl Hct 25.3 L (30.3-42.9) % Sodium 133 L (137-145) mmol/L Chloride 97.3 L (98-107) mmol/L Glucose 235 H (65-100) mg/dL POC Glucose 235 H (70-105) mg/dL
[2021-11-02] MEDS: MONTELUKAST 10 MG TAB PO SCH (17:35)
[2021-11-02] MEDS ORDERED: FLUTICASONE PROPIONATE NASAL SPRAY 16 GM NS PRN (19:55)
[2021-11-02] MEDS: HYDROmorphone 0.5 MG/0.5 ML INJ IV PRN (20:56)
[2021-11-02] MEDS: KETOROLAC 30 MG/1 ML INJ IV PRN (20:56)
[2021-11-03] MEDS: HYDROmorphone 0.5 MG/0.5 ML INJ IV PRN ×2 (06:19→13:52)
[2021-11-03] MEDS: ARFORMOTEROL 15 MCG/2 ML NEBU IH SCH ×2 (07:42→20:38)
[2021-11-03] MEDS: BUDESONIDE 0.5 MG/2 ML NEBU IH SCH ×2 (07:42→20:38)
[2021-11-03] MEDS: metFORMIN 500 MG TAB PO SCH ×2 (08:00→17:29)
[2021-11-03] MEDS: hydroCHLOROthiazide 25 MG TAB PO SCH (09:47)
[2021-11-03] MEDS: FERROUS SULFATE 325 MG TAB PO SCH (09:47)
[2021-11-03] MEDS: PANTOPRAZOLE 40 MG TAB PO SCH (09:48)
[2021-11-03] MEDS: VALSARTAN 160MG TAB PO SCH (09:48)
[2021-11-03] MEDS: ENOXAPARIN 40 MG/0.4 ML INJ SUB-Q SCH (09:49)
[2021-11-03] MEDS: amLODIPine 10 MG TAB PO SCH (09:49)
[2021-11-03] MEDS: MONTELUKAST 10 MG TAB PO SCH (17:29)
[2021-11-03] MEDS: oxyCODONE /ACETAMINOPHEN 5-325MG TAB PO PRN (22:57)
[2021-11-04] MEDS: metFORMIN 500 MG TAB PO SCH ×2 (08:42→17:24)
[2021-11-04] MEDS: ARFORMOTEROL 15 MCG/2 ML NEBU IH SCH ×2 (10:03→20:23)
[2021-11-04] MEDS: BUDESONIDE 0.5 MG/2 ML NEBU IH SCH ×2 (10:03→20:22)
--- NOTE | 2021-11-04 10:46 | Consultation ---
History of Present Illness - Reason for Consult Consult date: 11/04/21 abx management Requesting physician: JOSE ZIMMERMAN - History of Present Illness The patient is a 69-year-old female with hypertension, diabetes, GERD, hyperlipidemia, underwent left TKA in July 2021, initially had superficial infection with cultures growing MSSA. Due to increasing pain, she underwent an outpatient arthrocentesis with cultures again growing MSSA. Infectious diseases was consulted and I had recommended patient undergo a staged revision arthroplasty. On 11/01/2021, patient underwent I&D, explantation and placement of cement spacers. Cultures again are growing MSSA. She is otherwise afebrile. Her only complaint is that of left knee pain. Review of Systems: General: no fevers,chills or rigors HEENT: no new visual disturbance Respiratory: No cough, sputum, hemoptysis or shortness of breath Cardiovascular: No chest pain, syncope Gastrointestinal: No nausea, vomiting or diarrhea Genitourinary: No dysuria or hematuria Musculoskeletal: No new or worsening neck pain or back pain Neurologic: No headaches, seizures Hematologic: No easy bruising or bleeding Endocrine: No night sweats or acute weight loss Skin: negative for rash, jaundice Psychiatric: No suicidal or homicidal ideation Past History Past Medical History: GERD, hypertension, hyperlipidemia Past Surgical History: total knee replacement Social history: lives with family, full code Family history: hypertension Medications and Allergies Allergies Allergy/AdvReac Type Severity Reaction Status Date / Time LOBSTER AdvReac Itching Uncoded 04/19/20 11:38 Home Medications Medication Instructions Recorded Confirmed Last Taken Type amLODIPine 10 mg PO DAILY #30 tablet 04/24/20 11/02/21 07/10/21 Rx Ferrous Sulfate [Iron 325 MG] 325 mg PO DAILY 07/09/21 11/02/21 07/10/21 History ALBUTEROL NEB's [Proventil 0.083% 2.5 mg IH TID PRN 07/12/21 11/02/21 Unknown History NEBS] Apixaban [Eliquis] 5 mg PO DAILY #30 07/12/21 11/02/21 Unknown Rx Budesonide/Formoterol Fumarate 2 puff IH BID 07/12/21 11/02/21 07/10/21 History [Symbicort 80-4.5 Mcg Inhaler] Meclizine [Antivert] 12.5 mg PO BID PRN 07/12/21 11/02/21 07/10/21 History Metformin HCl [metFORMIN] 1,000 mg PO BID 07/12/21 11/02/21 07/10/21 History Montelukast [Singulair] 10 mg PO QPM 07/12/21 11/02/21 07/10/21 History Omeprazole 40 mg PO QDAY 07/12/21 11/02/21 07/10/21 History Oxycodone HCl/Acetaminophen 1 each PO Q6HR PRN #30 07/12/21 11/02/21 Unknown Rx [Percocet 10/325 mg] Valsartan/Hydrochlorothiazide 1 tab PO QDAY 07/12/21 11/02/21 07/10/21 History [Valsartan-Hctz 320-25 mg Tab] Active Meds: Active Medications Acetaminophen (Acetaminophen 325 Mg Tab) 650 mg PO Q4H PRN PRN Reason: Pain MILD(1-3)/Fever >100.5/[place] Albuterol (Albuterol 2.5 Mg/3 Ml Nebu) 2.5 mg IH TID PRN PRN Reason: Shortness Of Breath Amlodipine Besylate (Amlodipine 10 Mg Tab) 10 mg PO DAILY [facility] Last Admin: 11/03/21 09:49 Dose: 10 mg Arformoterol Tartrate (Arformoterol 15 Mcg/2 Ml Nebu) 15 mcg IH Q12HRT [facility] Last Admin: 11/04/21 10:03 Dose: 15 mcg Budesonide (Budesonide 0.5 Mg/2 Ml Nebu) 0.5 mg IH Q12HRT [facility] Last Admin: 11/04/21 10:03 Dose: 0.5 mg Enoxaparin Sodium (Enoxaparin 40 Mg/0.4 Ml Inj) 40 mg SUB-Q QDAY [facility] Last Admin: 11/03/21 09:49 Dose: 40 mg Ferrous Sulfate (Ferrous Sulfate 325 Mg Tab) 325 mg PO DAILY [facility] Last Admin: 11/03/21 09:47 Dose: 325 mg Fluticasone Propionate (Fluticasone Propionate Nasal [place] 16 Gm) 100 mcg NS QDAY PRN PRN Reason: Congestion Last Admin: 11/02/21 20:56 Dose: 100 mcg Hydrochlorothiazide (Hydrochlorothiazide 25 Mg Tab) 25 mg PO QDAY [facility] Last Admin: 11/03/21 09:47 Dose: 25 mg Hydromorphone HCl (Hydromorphone 0.5 Mg/0.5 Ml Inj) 0.5 mg IV Q3H PRN PRN Reason: Pain , Severe (7-10) Last Admin: 11/03/21 13:52 Dose: 0.5 mg Cefazolin Sodium 2 gm/ Sodium (Chloride) 100 mls @ 200 mls/hr IV Q8H [facility]; Protocol Last Admin: 11/04/21 06:50 Dose: 200 mls/hr Ibuprofen (Ibuprofen 600 Mg Tab) 600 mg PO Q6H PRN PRN Reason: Pain, Mild (1-3) Ketorolac Tromethamine (Ketorolac 30 Mg/1 Ml Inj) 15 mg IV Q6H PRN PRN Reason: Pain, Moderate (4-6) Stop: 11/06/21 17:49 Last Admin: 11/02/21 20:56 Dose: 15 mg Meclizine HCl (Meclizine 12.5 Mg Tab) 12.5 mg PO BID PRN PRN Reason: Vertigo Last Admin: 11/02/21 03:53 Dose: 12.5 mg Metformin HCl (Metformin 500 Mg Tab) 1,000 mg PO BIDDIAB [facility] Last Admin: 11/04/21 08:42 Dose: 1,000 mg Montelukast Sodium (Montelukast 10 Mg Tab) 10 mg PO QPM [facility] Last Admin: 11/03/21 17:29 Dose: 10 mg Morphine Sulfate (Morphine 2 Mg/1 Ml Inj) 2 mg IV Q4H PRN PRN Reason: Pain, Moderate (4-6) Last Admin: 11/03/21 17:34 Dose: 2 mg Morphine Sulfate (Morphine 4 Mg/1 Ml Inj) 4 mg IV Q4H PRN PRN Reason: Pain , Severe (7-10) Ondansetron HCl (Ondansetron 4 Mg/2 Ml Inj) 4 mg IV ONCE PRN PRN Reason: Nausea And Vomiting Ondansetron HCl (Ondansetron 4 Mg/2 Ml Inj) 4 mg IV Q8H PRN PRN Reason: Nausea And Vomiting Oxycodone HCl (Oxycodone 5 Mg Tab) 5 mg PO Q6H PRN PRN Reason: Pain, Moderate (4-6) Last Admin: 11/02/21 03:53 Dose: 5 mg Oxycodone/Acetaminophen (Oxycodone /Acetaminophen 5-325mg Tab) 1 tab PO Q6H PRN PRN Reason: Pain, Moderate (4-6) Last Admin: 11/03/21 22:57 Dose: 1 tab Pantoprazole Sodium (Pantoprazole 40 Mg Tab) 40 mg PO QDAY [facility] Last Admin: 11/03/21 09:48 Dose: 40 mg Sodium Chloride (Sodium Chloride 0.9% 10 Ml Flush Syringe) 10 ml IV BID [facility] Last Admin: 11/03/21 22:58 Dose: 10 ml Sodium Chloride (Sodium Chloride 0.9% 10 Ml Flush Syringe) 10 ml IV PRN [facility] Last Admin: 11/03/21 06:19 Dose: 10 ml Valsartan (Valsartan 160mg Tab) 320 mg PO QDAY [facility] Last Admin: 11/03/21 09:48 Dose: 320 mg Physical Examination - Physical Exam Narrative exam: Physical Exam: Constitutional: Alert, cooperative. No acute distress Head, Ears, Nose: Normocephalic, atraumatic. External ears, nose normal Eyes: Conjunctivae/corneas clear. No icterus. No ptosis. Neck: Supple, no meningeal signs Cardiovascular: S1, S2 + Respiratory: Good air entry, clear to auscultation bilaterally GI: Soft, non-tender; bowel sounds normal. No peritoneal signs Musculoskeletal: Left knee dressing present Skin: No rash or abscess Hem/Lymphatic: No palpable cervical or supraclavicular nodes. No lymphangitis Psych: Mood ok. Affect normal Neurological: Awake, alert, oriented. No gross abnormality - Constitutional Vitals: Vital Signs Temp Pulse Resp BP Pulse Ox 98.6 F 96 H 18 169/91 96 11/04/21 04:46 11/04/21 10:03 11/04/21 10:03 11/04/21 04:46 11/04/21 10:04 Temperature -Last 24 Hours Temperature 98.6 F Temperature 98.8 F Temperature 97.0 F Temperature 99.4 F Results - Labs CBC & Chem 7: 11/02/21 05:10 11/02/21 05:10 Labs: Abnormal lab results 08/28/22 08/28/22 08/28/22 Range/Units 11:35 16:40 21:34 POC Glucose 211 H 147 H 165 H (70-105) mg/dL Assessment and Plan Cultures: 08/12/2021 left knee superficial culture: MSSA 10/25/2021 left knee synovial fluid culture: MSSA 11/01/2021 intraoperative left knee culture: MSSA A/P: 69-year-old female with hypertension, diabetes, GERD, hyperlipidemia, underwent left TKA in July 2021, initially had superficial infection with cultures growing MSSA: #Left knee prosthetic joint infection: Initial TKA in July 2021, complicated by superficial infection with MSSA. Now s/p I&D, explantation and placement of cement spacer on 11/01/2021. #Diabetes mellitus: Optimize glycemic control Recs: -IV cefazolin 2 g every 8 hours for 6 weeks ending 12/16/2021 -Baseline ESR and CRP ordered -PICC line ordered -Case management orders placed for IV antibiotics, okay for discharge once PICC line is inserted and antibiotics have been arranged -ID clinic follow up in 3-5 weeks (handkerchief presser notified) Plan discussed with Dr. Zimmerman, patient and with RN. Mohan Carrero MD, FACP, [facility] O: [phone] F: [phone] C: [phone]
[2021-11-04] MEDS: IBUPROFEN 600 MG TAB PO PRN (12:45)
[2021-11-04] MEDS: hydroCHLOROthiazide 25 MG TAB PO SCH (12:48)
[2021-11-04] MEDS: amLODIPine 10 MG TAB PO SCH (12:48)
[2021-11-04] MEDS: ENOXAPARIN 40 MG/0.4 ML INJ SUB-Q SCH (12:49)
[2021-11-04] MEDS: FERROUS SULFATE 325 MG TAB PO SCH (12:49)
[2021-11-04] MEDS: VALSARTAN 160MG TAB PO SCH (13:03)
[2021-11-04] MEDS: PANTOPRAZOLE 40 MG TAB PO SCH (13:04)
[2021-11-04] MEDS: MONTELUKAST 10 MG TAB PO SCH (17:25)
[2021-11-04] MEDS: INSULIN LISPRO 100 UNIT/ML SUB-Q SCH (22:14)
--- NOTE | 2021-11-04 23:21 | Progress Note ---
Subjective Date of service: 11/04/21 Interval history: states knee feeling somewhat better after I&D... Objective Vital signs: Vital Signs - 12hr 11/04/21 11/04/21 11/04/21 12:35 12:48 16:48 Temperature 97.5 F L 98.6 F Pulse Rate 92 H 92 H 94 H Pulse Rate [ Anterior Bilateral Throughout] Respiratory 18 18 Rate Respiratory Rate [Anterior Bilateral Throughout] Blood Pressure 146/57 146/57 130/59 O2 Sat by Pulse 98 99 Oximetry 11/04/21 20:23 Temperature Pulse Rate Pulse Rate [ 101 H Anterior Bilateral Throughout] Respiratory Rate Respiratory 16 Rate [Anterior Bilateral Throughout] Blood Pressure O2 Sat by Pulse Oximetry - Labs CBC & BMP: 11/02/21 05:10 11/02/21 05:10 Labs: Abnormal lab results 11/03/21 11/04/21 11/04/21 Range/Units 21:34 08:08 12:41 POC Glucose 165 H 155 H 175 H (70-105) mg/dL C-Reactive Protein (0.00-1.30) mg/dL 11/04/21 11/04/21 Range/Units 16:50 20:25 POC Glucose 157 H (70-105) mg/dL C-Reactive Protein 16.30 H (0.00-1.30) mg/dL
[2021-11-05] MEDS: oxyCODONE /ACETAMINOPHEN 5-325MG TAB PO PRN ×2 (05:42→22:27)
[2021-11-05] MEDS: INSULIN LISPRO 100 UNIT/ML SUB-Q SCH ×4 (09:06→22:22)
[2021-11-05] MEDS: metFORMIN 500 MG TAB PO SCH ×2 (09:07→18:51)
[2021-11-05] MEDS: ARFORMOTEROL 15 MCG/2 ML NEBU IH SCH ×2 (09:13→20:30)
[2021-11-05] MEDS: BUDESONIDE 0.5 MG/2 ML NEBU IH SCH ×2 (09:13→20:29)
[2021-11-05] MEDS: ENOXAPARIN 40 MG/0.4 ML INJ SUB-Q SCH (10:42)
[2021-11-05] MEDS: IBUPROFEN 600 MG TAB PO PRN (10:43)
[2021-11-05] MEDS: amLODIPine 10 MG TAB PO SCH (10:43)
[2021-11-05] MEDS: VALSARTAN 160MG TAB PO SCH (10:44)
[2021-11-05] MEDS: FERROUS SULFATE 325 MG TAB PO SCH (10:44)
[2021-11-05] MEDS: hydroCHLOROthiazide 25 MG TAB PO SCH (10:44)
[2021-11-05] MEDS: PANTOPRAZOLE 40 MG TAB PO SCH (10:45)
--- NOTE | 2021-11-05 11:27 | Progress Note ---
Assessment and Plan Assessment and plan: 69-year-old female with hypertension, diabetes mellitus type 2, GERD, hyperlipidemia underwent left TKA in July 2021 with complications of initially a superficial infection with cultures growing MSSA. Patient had recurrent left knee prosthetic joint infection that required I&D and removal of implants and insertion of cement spacers to the left knee. Left knee prosthetic joint infection Diabetes mellitus type 2 11/05/2021. ID consulted and recommends IV cefazolin 2 g every 8 hours for 6 weeks ending on 12/16/2021. Follow-up ESR and CRP. PICC line to be placed today. ID reports case management orders placed for IV antibiotics and patient may discharge once PICC line is inserted and antibiotics arranged. We will sign off given patient's discharge likely today History Interval history: No new issues overnight Hospitalist Physical - Constitutional Vitals: Temp Pulse Resp BP Pulse Ox 98.1 F 95 H 18 125/62 98 11/05/21 05:03 11/05/21 10:44 11/05/21 09:13 11/05/21 10:44 11/05/21 05:03 General appearance: Present: no acute distress, well-nourished - EENT Eyes: Present: PERRL, EOM intact ENT: hearing intact, clear oral mucosa, dentition normal - Neck Neck: Present: supple, normal ROM - Respiratory Respiratory effort: normal Respiratory: bilateral: CTA - Cardiovascular Rhythm: regular Heart Sounds: Present: S1 & S2. Absent: gallop, rub - Extremities Extremities: no ischemia, No edema, Full ROM - Abdominal General gastrointestinal: soft, non-tender, non-distended, normal bowel sounds - Integumentary Integumentary: Present: clear, warm, dry - Neurologic Neurologic: CNII-XII intact, moves all extremities Results - Labs CBC & Chem 7: 11/02/21 05:10 11/02/21 05:10 Labs: Laboratory Last Values WBC 6.9 K/mm3 (4.5-11.0) 10/31/21 17:47 RBC 4.08 M/mm3 (3.65-5.03) 10/31/21 17:47 Hgb 8.3 gm/dl (10.1-14.3) L 11/02/21 05:10 Hct 25.3 % (30.3-42.9) L 11/02/21 05:10 MCV 70 fl (79-97) L 10/31/21 17:47 MCH 22 pg (28-32) L 10/31/21 17:47 MCHC 32 % (30-34) 10/31/21 17:47 RDW 21.1 % (13.2-15.2) H 10/31/21 17:47 Plt Count 377 K/mm3 (140-440) 10/31/21 17:47 Lymph % (Auto) 20.9 % (13.4-35.0) 10/31/21 17:47 [place] % (Auto) 12.3 % (0.0-7.3) H 10/31/21 17:47 Eos % (Auto) 3.9 % (0.0-4.3) 10/31/21 17:47 Baso % (Auto) 0.5 % (0.0-1.8) 10/31/21 17:47 Lymph # (Auto) 1.4 K/mm3 (1.2-5.4) 10/31/21 17:47 [place] # (Auto) 0.8 K/mm3 (0.0-0.8) 10/31/21 17:47 Eos # (Auto) 0.3 K/mm3 (0.0-0.4) 10/31/21 17:47 Baso # (Auto) 0.0 K/mm3 (0.0-0.1) 10/31/21 17:47 Seg Neutrophils % 62.4 % (40.0-70.0) 10/31/21 17:47 Seg Neutrophils # 4.3 K/mm3 (1.8-7.7) 10/31/21 17:47 ESR > 140.0 mm/Hr (0-20) 11/04/21 20:25 Sodium 133 mmol/L (137-145) L 11/02/21 05:10 Potassium 5.0 mmol/L (3.6-5.0) D 11/02/21 05:10 Chloride 97.3 mmol/L (98-107) L 11/02/21 05:10 Carbon Dioxide 26 mmol/L (22-30) 11/02/21 05:10 Anion Gap 15 mmol/L 11/02/21 05:10 BUN 15 mg/dL (7-17) 11/02/21 05:10 Creatinine 0.6 mg/dL (0.6-1.2) 11/02/21 05:10 Estimated GFR > 60 ml/min 11/02/21 05:10 BUN/Creatinine Ratio 25 % 11/02/21 05:10 Glucose 235 mg/dL (65-100) H 11/02/21 05:10 POC Glucose 165 mg/dL (70-105) H 11/05/21 07:53 Calcium 8.6 mg/dL (8.4-10.2) 11/02/21 05:10 C-Reactive Protein 16.30 mg/dL (0.00-1.30) H 11/04/21 20:25 Urine Color Straw (Yellow) 10/31/21 Unknown Urine Turbidity Clear (Clear) 10/31/21 Unknown Specific [place] (Man) 1.010 (1.003-1.030) 10/31/21 Unknown Ur Protein (Man) Negative mg/dL (Negative) 10/31/21 Unknown Ur Ketones (Man) Negative (Negative) 10/31/21 Unknown Ur Nitrite (Man) Negative (Negative) 10/31/21 Unknown Ur Reducing Substances Not Reportable 10/31/21 Unknown Urine Bilirubin (Man) Negative (Negative) 10/31/21 Unknown Leukocyte Esterase (Man) Trace (Negative) 10/31/21 Unknown Urine WBC (Auto) 1.0 /HPF (0.0-6.0) 10/31/21 Unknown Urine RBC (Auto) 1.0 /HPF (0.0-6.0) 10/31/21 Unknown U Epithel Cells (Auto) 1.0 /HPF (0-13.0) 10/31/21 Unknown Urine Bacteria (Auto) 1+ /HPF (Negative) 10/31/21 Unknown Urine RBC (Manual) Negative (Negative) 10/31/21 Unknown Microbiology: Microbiology 11/01/21 Unknown Knee - Left Anaerobic Culture - Preliminary [place]/IV: Voiding Method Bedside Commode Active Medications - Current Medications Current Medications: Generic Name Dose Route Start Last Admin Trade Name Freq PRN Reason Stop Dose Admin Acetaminophen 650 mg 11/01/21 17:50 Acetaminophen 325 Mg Tab PO Q4H PRN Pain MILD(1-3)/Fever >100.5/[place] Albuterol 2.5 mg 10/31/21 20:56 Albuterol 2.5 Mg/3 Ml Nebu IH TID PRN Shortness Of Breath Amlodipine Besylate 10 mg 10/31/21 21:00 11/05/21 10:43 Amlodipine 10 Mg Tab PO 10 mg DAILY [facility] Administration Arformoterol Tartrate 15 mcg 11/01/21 08:00 11/05/21 09:13 Arformoterol 15 Mcg/2 Ml Nebu IH 15 mcg Q12HRT [facility] Administration Budesonide 0.5 mg 11/01/21 08:00 11/05/21 09:13 Budesonide 0.5 Mg/2 Ml Nebu IH 0.5 mg Q12HRT [facility] Administration Enoxaparin Sodium 40 mg 11/02/21 10:00 11/05/21 10:42 Enoxaparin 40 Mg/0.4 Ml Inj SUB-Q 40 mg QDAY [facility] Administration Ferrous Sulfate 325 mg 10/31/21 21:00 11/05/21 10:44 Ferrous Sulfate 325 Mg Tab PO 325 mg DAILY [facility] Administration Fluticasone Propionate 100 mcg 11/02/21 19:55 11/02/21 20:56 Fluticasone Propionate Nasal [place] 16 Gm NS 100 mcg QDAY PRN Administration Congestion Hydrochlorothiazide 25 mg 10/31/21 21:00 11/05/21 10:44 Hydrochlorothiazide 25 Mg Tab PO 25 mg QDAY [facility] Administration Hydromorphone HCl 0.5 mg 10/31/21 16:15 11/03/21 13:52 Hydromorphone 0.5 Mg/0.5 Ml Inj IV 0.5 mg Q3H PRN Administration Pain , Severe (7-10) Cefazolin Sodium 2 gm/ Sodium 100 mls @ 200 mls/hr 11/01/21 14:00 11/05/21 05:42 Chloride IV 12/16/21 22:29 200 mls/hr Q8H [facility] Administration Protocol Ibuprofen 600 mg 10/31/21 14:18 11/05/21 10:43 Ibuprofen 600 Mg Tab PO 600 mg Q6H PRN Administration Pain, Mild (1-3) Insulin Human Lispro 0 unit 11/04/21 22:00 11/05/21 09:06 Insulin Lispro 100 Unit/Ml SUB-Q 2 unit ACHS [facility] Administration Protocol Ketorolac Tromethamine 15 mg 11/01/21 17:50 11/02/21 20:56 Ketorolac 30 Mg/1 Ml Inj IV 11/06/21 17:49 15 mg Q6H PRN Administration Pain, Moderate (4-6) Meclizine HCl 12.5 mg 10/31/21 20:56 11/02/21 03:53 Meclizine 12.5 Mg Tab PO 12.5 mg BID PRN Administration Vertigo Metformin HCl 1,000 mg 10/31/21 22:00 11/05/21 09:07 Metformin 500 Mg Tab PO 1,000 mg BIDDIAB [facility] Administration Montelukast Sodium 10 mg 11/01/21 18:00 11/04/21 17:25 Montelukast 10 Mg Tab PO 10 mg QPM [facility] Administration Morphine Sulfate 2 mg 11/01/21 17:50 11/03/21 17:34 Morphine 2 Mg/1 Ml Inj IV 2 mg Q4H PRN Administration Pain, Moderate (4-6) Morphine Sulfate 4 mg 11/01/21 17:50 Morphine 4 Mg/1 Ml Inj IV Q4H PRN Pain , Severe (7-10) Ondansetron HCl 4 mg 11/01/21 17:50 Ondansetron 4 Mg/2 Ml Inj IV Q8H PRN Nausea And Vomiting Oxycodone HCl 5 mg 10/31/21 21:37 11/02/21 03:53 Oxycodone 5 Mg Tab PO 5 mg Q6H PRN Administration Pain, Moderate (4-6) Oxycodone/Acetaminophen 1 tab 10/31/21 21:36 11/05/21 05:42 Oxycodone /Acetaminophen 5-325mg Tab PO 1 tab Q6H PRN Administration Pain, Moderate (4-6) Pantoprazole Sodium 40 mg 10/31/21 21:00 11/05/21 10:45 Pantoprazole 40 Mg Tab PO 40 mg QDAY [facility] Administration Sodium Chloride 10 ml 10/31/21 22:00 11/04/21 21:19 Sodium Chloride 0.9% 10 Ml Flush Syringe IV 10 ml BID [facility] Administration Sodium Chloride 10 ml 11/01/21 18:00 11/03/21 06:19 Sodium Chloride 0.9% 10 Ml Flush Syringe IV 10 ml PRN [facility] Administration Valsartan 320 mg 10/31/21 21:00 11/05/21 10:44 Valsartan 160mg Tab PO 320 mg QDAY [facility] Administration Nutrition/Malnutrition Assess - Dietary Evaluation Nutrition/Malnutrition Findings: Nutrition Notes Start: 11/01/21 11:22 Freq: Status: Active Protocol: Document 11/01/21 11:22 MORE (Rec: 11/01/21 11:25 MORE [id number]) Nutrition Notes Need for Assessment generated from: skilled labor Initial or Follow up Brief Note Current Diagnosis Diabetes,Hypertension, Hyperlipidemia Other Pertinent Diagnosis Infected (L) total knee replacement Current Diet Consistent CHO Labs/Tests reviewed Pertinent Medications Feosol Height 5 ft 6 in Weight 97.8 kg [place] Body Weight (kg) 59.09 BMI 34.7 Weight Status Obese Subjective/Other Information Pt screened for skin risk, however no Can score available. Burn Absent Trauma Absent Minimum of two criteria No Is patient on ventilator? No Is Patient Ambulatory and/or Out of Bed No REE-([facility]-confined to bed) 1823.244 Kcal/Kg value to use for calculation 14 Approximate Energy Requirements Using 1369 kcal/Kg Calculation Used for Recommendations Kcal/kg Additional Notes Pro needs 1-1.2g/kg adjBW: 78- 94g/day Fluid needs 1ml/kcal Nutrition Intervention Follow-Up By: 11/05/21 Additional Comments F/U: intakes
--- NOTE | 2021-11-05 13:49 | Progress Note ---
Assessment and Plan Cultures: 08/12/2021 left knee superficial culture: MSSA 10/25/2021 left knee synovial fluid culture: MSSA 11/01/2021 intraoperative left knee culture: MSSA A/P: 69-year-old female with hypertension, diabetes, GERD, hyperlipidemia, underwent left TKA in July 2021, initially had superficial infection with cultures growing MSSA: #Left knee prosthetic joint infection: Initial TKA in July 2021, complicated by superficial infection with MSSA. Now s/p I&D, explantation and placement of cement spacer on 11/01/2021. #Diabetes mellitus: Optimize glycemic control Recs: -IV cefazolin 2 g every 8 hours for 6 weeks ending 12/16/2021 -Baseline ESR >130, CRP 16.3 -Case management orders placed for IV antibiotics, okay for discharge once antibiotics have been arranged -ID clinic follow up in 3-5 weeks (material scheduler notified) Will sign off. Please call with questions. Mohan Carrero MD, FACP, [facility] O: [phone] F: [phone] C: [phone] Subjective Date of service: 11/05/21 Interval history: No fever. No new complaints. Just got PICC line placed. Objective - Exam Narrative Exam: Physical Exam: Constitutional: Alert, cooperative. No acute distress Head, Ears, Nose: Normocephalic, atraumatic. External ears, nose normal Eyes: Conjunctivae/corneas clear. No icterus. No ptosis. Neck: Supple, no meningeal signs Cardiovascular: S1, S2 + Respiratory: Good air entry, clear to auscultation bilaterally GI: Soft, non-tender; bowel sounds normal. No peritoneal signs Musculoskeletal: Left knee dressing + Skin: No rash or abscess Hem/Lymphatic: No palpable cervical or supraclavicular nodes. No lymphangitis Psych: Mood ok. Affect normal Neurological: Awake, alert, oriented. No gross abnormality - Constitutional Vitals: Vital Signs Temp Pulse Resp BP Pulse Ox 98.1 F 95 H 18 125/62 98 11/05/21 05:03 11/05/21 10:44 11/05/21 09:13 11/05/21 10:44 11/05/21 05:03 Temperature -Last 24 Hours Temperature 98.1 F Temperature 98.7 F Temperature 98.6 F - Labs CBC & Chem 7: 11/02/21 05:10 11/02/21 05:10 Labs: Abnormal lab results 11/04/21 11/04/21 11/04/21 Range/Units 08:08 12:41 16:50 POC Glucose 155 H 175 H 157 H (70-105) mg/dL C-Reactive Protein (0.00-1.30) mg/dL 11/04/21 11/04/21 11/05/21 Range/Units 20:25 21:27 07:53 POC Glucose 159 H 165 H (70-105) mg/dL C-Reactive Protein 16.30 H (0.00-1.30) mg/dL 11/05/21 Range/Units 11:12 POC Glucose 182 H (70-105) mg/dL C-Reactive Protein (0.00-1.30) mg/dL
[2021-11-05] MEDS: MONTELUKAST 10 MG TAB PO SCH (18:51)
[2021-11-06] MEDS: FERROUS SULFATE 325 MG TAB PO SCH (09:08)
[2021-11-06] MEDS: VALSARTAN 160MG TAB PO SCH (09:08)
[2021-11-06] MEDS: amLODIPine 10 MG TAB PO SCH (09:08)
[2021-11-06] MEDS: hydroCHLOROthiazide 25 MG TAB PO SCH (09:08)
[2021-11-06] MEDS: metFORMIN 500 MG TAB PO SCH ×2 (09:08→17:04)
[2021-11-06] MEDS: oxyCODONE 5 MG TAB PO PRN ×3 (09:08→22:45)
[2021-11-06] MEDS: oxyCODONE /ACETAMINOPHEN 5-325MG TAB PO PRN ×3 (09:08→22:44)
[2021-11-06] MEDS: ENOXAPARIN 40 MG/0.4 ML INJ SUB-Q SCH (09:09)
[2021-11-06] MEDS: PANTOPRAZOLE 40 MG TAB PO SCH (09:09)
[2021-11-06] MEDS: INSULIN LISPRO 100 UNIT/ML SUB-Q SCH ×4 (09:09→22:35)
[2021-11-06] MEDS: BUDESONIDE 0.5 MG/2 ML NEBU IH SCH ×2 (09:46→20:01)
[2021-11-06] MEDS: ARFORMOTEROL 15 MCG/2 ML NEBU IH SCH ×2 (09:46→20:01)
[2021-11-06] MEDS: MONTELUKAST 10 MG TAB PO SCH (17:05)
[2021-11-07] MEDS: INSULIN LISPRO 100 UNIT/ML SUB-Q SCH ×3 (07:30→16:30)
[2021-11-07] MEDS: metFORMIN 500 MG TAB PO SCH ×2 (08:00→17:26)
[2021-11-07] MEDS: BUDESONIDE 0.5 MG/2 ML NEBU IH SCH (09:00)
[2021-11-07] MEDS: ARFORMOTEROL 15 MCG/2 ML NEBU IH SCH (09:00)
[2021-11-07] MEDS: hydroCHLOROthiazide 25 MG TAB PO SCH (10:24)
[2021-11-07] MEDS: amLODIPine 10 MG TAB PO SCH (10:25)
[2021-11-07] MEDS: VALSARTAN 160MG TAB PO SCH (10:25)
[2021-11-07] MEDS: FERROUS SULFATE 325 MG TAB PO SCH (10:25)
[2021-11-07] MEDS: PANTOPRAZOLE 40 MG TAB PO SCH (10:25)
[2021-11-07] MEDS: ENOXAPARIN 40 MG/0.4 ML INJ SUB-Q SCH (10:26)
[2021-11-07] MEDS: oxyCODONE /ACETAMINOPHEN 5-325MG TAB PO PRN (10:54)
[2021-11-07] MEDS: oxyCODONE 5 MG TAB PO PRN (10:55)
--- NOTE | 2021-11-07 12:59 | Discharge Summary ---
Providers - Providers Date of Admission: 10/31/21 16:04 Date of discharge: 11/07/21 Attending physician: JOSE MARTEL MD 10/31/21 17:19 Consult to Physician [CONS] Urgent Comment: Consulting Provider: MARGARITA JUAN Physician Instructions: Reason For Exam: MEDICAL MANAGEMENT, INFECTION LT. TOTAL KNEE 11/01/21 17:50 Consult to Case Management [CONS] Routine Services Needed at Discharge: Other Notified:: yes Additional Physician Instructions: Assess Discharge needs. Physical Therapy Evaluation and Treat [CONS] Routine Comment: Reason For Exam: Eval and Treat 11/04/21 08:53 Consult to Physician [CONS] Stat Comment: Consulting Provider: MOHAN DENT Physician Instructions: Reason For Exam: Antibiotic 11/04/21 10:43 Consult to Case Management [CONS] Routine Services Needed at Discharge: Other Notified:: cm Was contact made?: No Time called:: 11:13 Comment:: IV antibiotics, second request for cm. self consult Additional Physician Instructions: [facility] O: [phone] F: [phone] OUTPATIENT PARENTERAL ANTIBIOTIC THERAPY (OPAT) ORDERS Diagnoses: Left knee prosthetic joint infection, MSSA Antimicrobial administration: IV cefazolin 2 g every 8 hours for 6 weeks ending 12/16/2021 - Remove PICC line after last dose unless otherwise instructed. Lines: Maintain IV access with weekly dressing changes and locks per protocol. Lab monitoring: - CBC with differential, CMP, ESR, CRP once a week every Thursday while on IV antibiotics. - Please fax results to [phone] and call [phone] for critical lab results. Mohan Dent MD, FACP, [facility] Consult to PICC Line RN [CONS] Routine Reason For Exam: iv abx Type Line:: PICC 11/06/21 08:52 Occupational Therapy Evaluate and Treat [CONS] Stat Comment: Eval and Treat Reason For Exam: Occupational Therapy Primary care physician: ZAYRA LOVE Hospitalization Condition: Stable Disposition: 06 HOME HEALTH CARE SERVICE Final Discharge Diagnosis (Prints w/discharge instructions): Left knee cellulitis. Systemic inflammatory response syndrome. Hypertension Time spent for discharge: 35 minutes - Discharge Diagnoses (1) HTN (hypertension) Status: Chronic Qualifiers: Hypertension type: primary hypertension Qualified Code(s): I10 - Essential (primary) hypertension (2) T2DM (type 2 diabetes mellitus) Status: Chronic Qualifiers: Diabetes mellitus correction insulin use: without correction use (3) Hypertension Status: Chronic Qualifiers: Hypertension type: primary hypertension Qualified Code(s): I10 - Essential (primary) hypertension (4) HLD (hyperlipidemia) Status: Chronic Qualifiers: Hyperlipidemia type: mixed hyperlipidemia Qualified Code(s): E78.2 - Mixed hyperlipidemia (5) Infection of total left knee replacement Status: Acute Qualifiers: Encounter type: initial encounter Qualified Code(s): T84.54XA - Infection and inflammatory reaction due to internal left knee prosthesis, initial encounter (6) DVT prophylaxis Status: Acute (7) Advance care planning Status: Acute Core Measure Documentation - Palliative Care Palliative Care/ Comfort Measures: Not Applicable - Core Measures Any of the following diagnoses?: none Exam - Constitutional Vitals: Temp Pulse Resp BP Pulse Ox 97.9 F 92 H 20 126/63 97 11/07/21 11:13 11/07/21 11:13 11/07/21 11:13 11/07/21 11:13 11/07/21 11:13 General appearance: Present: no acute distress, well-nourished - EENT Eyes: Present: PERRL ENT: hearing intact, clear oral mucosa - Neck Neck: Present: supple, normal ROM - Respiratory Respiratory effort: normal Respiratory: bilateral: CTA - Cardiovascular Heart rate: 78 Rhythm: regular Heart Sounds: Present: S1 & S2. Absent: rub, click - Extremities Extremities: pulses symmetrical, No edema Peripheral Pulses: within normal limits - Abdominal General gastrointestinal: Present: soft, non-tender, non-distended, normal bowel sounds Female genitourinary: Present: normal - Integumentary Integumentary: Present: clear, warm, dry - Musculoskeletal Musculoskeletal: gait normal, strength equal bilaterally - Psychiatric Psychiatric: appropriate mood/affect, intact judgment & insight - Neurologic Neurologic: CNII-XII intact, moves all extremities Plan Activity: no restrictions Diet: regular Follow up with: ZAYRA LOVE MD [Primary Care Provider] - 7 Days Prescriptions: amLODIPine 10 mg PO DAILY 30 Days #30 tablet Valsartan [Diovan] 320 mg PO QDAY 30 Days #30 tablet Apixaban [Eliquis] 5 mg PO DAILY #30 Apixaban [Eliquis] 5 mg PO DAILY 30 Days #30 Fluticasone [Flonase] 100 mcg NS QDAY PRN #1 bottle PRN Reason: Congestion Ferrous Sulfate [Iron 325 MG] 325 mg PO DAILY 30 Days #30 Potassium Chloride [K-Dur] 10 meq PO QDAY #30 Omeprazole 40 mg PO QDAY #30 Oxycodone HCl/Acetaminophen [Percocet 10/325 mg] 1 each PO Q6HR PRN #30 PRN Reason: Pain oxyCODONE [roxiCODONE] 5 mg PO Q6H PRN #20 tablet PRN Reason: Pain, Moderate (4-6) Montelukast [Singulair] 10 mg PO QPM #30 tablet Budesonide/Formoterol Fumarate [Symbicort 80-4.5 Mcg Inhaler] 2 puff IH BID 30 Days #1 Valsartan/Hydrochlorothiazide [Valsartan-Hctz 320-25 mg Tab] 1 tab PO QDAY 30 Days #30
--- NOTE | 2021-11-07 12:59 | Progress Note ---
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 Plan to address problem: On metformin Accu-Cheks before meals and at bedtime Moderate dose sliding scale insulin coverage (3) Hypertension Current Visit: Yes Status: Chronic Qualifiers: Hypertension type: primary hypertension Qualified Code(s): I10 - Essential (primary) hypertension Plan to address problem: Continue antihypertensives and adjust medications as necessary (4) HLD (hyperlipidemia) Current Visit: No Status: Chronic Qualifiers: Hyperlipidemia type: mixed hyperlipidemia Qualified Code(s): E78.2 - Mixed hyperlipidemia Plan to address problem: Continue statins (5) Infection of total left knee replacement Current Visit: Yes Status: Acute Qualifiers: Encounter type: initial encounter Qualified Code(s): T84.54XA - Infection and inflammatory reaction due to internal left knee prosthesis, initial encounter Plan to address problem: IV antibiotics initiated Knee washout by Dr. Zimmerman and probable removal of spacers (6) DVT prophylaxis Current Visit: No Status: Acute Plan to address problem: On SCDs and GI prophylaxis (7) Advance care planning Current Visit: Yes Status: Acute Plan to address problem: Disease education conducted, care plan discussed, diagnosis discussed and prognosis discussed. Patient acknowledges care plan. +30 minutes. Patient is full code. Subjective Date of service: 11/03/21 Objective - Constitutional Vitals: Vital Signs - 12hr 11/07/21 11/07/21 11/07/21 05:44 09:00 11:13 Temperature 98.2 F 97.9 F Pulse Rate 92 H 92 H Pulse Rate [ 101 H Anterior Bilateral Throughout] Respiratory 20 20 Rate Respiratory 18 Rate [Anterior Bilateral Throughout] Blood Pressure 132/65 126/63 O2 Sat by Pulse 98 97 Oximetry General appearance: Present: no acute distress, well-nourished - EENT Eyes: PERRL, EOM intact ENT: hearing intact, clear oral mucosa Ears: bilateral: normal - Neck Neck: supple, normal ROM - Respiratory Respiratory effort: normal Respiratory: bilateral: CTA - Breasts Breasts: normal - Cardiovascular Rhythm: regular Heart Sounds: Present: S1 & S2. Absent: gallop, rub Extremities: pulses intact, No edema, normal color, Full ROM - Gastrointestinal General gastrointestinal: Present: soft, non-tender, non-distended, normal bowel sounds - Genitourinary Female genitourinary: normal - Integumentary Integumentary: clear, warm, dry - Musculoskeletal Musculoskeletal: 1, strength equal bilaterally - Neurologic Neurologic: moves all extremities - Psychiatric Psychiatric: memory intact, appropriate mood/affect, intact judgment & insight - Labs CBC & Chem 7: 11/02/21 05:10 11/02/21 05:10 Labs: Abnormal lab results 11/06/21 11/06/21 11/06/21 Range/Units 11:21 15:47 20:39 POC Glucose 231 H 173 H 154 H (70-105) mg/dL 11/07/21 11/07/21 Range/Units 07:12 11:12 POC Glucose 121 H 232 H (70-105) mg/dL
[2021-11-07 16:58] VITALS: BP 134/66
[2021-11-07] MEDS: MONTELUKAST 10 MG TAB PO SCH (17:26)
[2021-11-07] MEDS: IBUPROFEN 600 MG TAB PO PRN (19:48)
== END 2021-11-07 20:38 | disposition home health service (06) | DRG 464 ==
LOC: UNDOADMIN 14:14 → 3A 14:14
PROVIDERS: ADMIT Orthopaedic Surgery; ATTEND Orthopaedic Surgery
PROC: 0SPD0JZ Removal of Synthetic Substitute from Left Knee Joint, Open Approach (ICD-10-PCS; principal; 2021-11-01)
PROC: 0SHD08Z Insertion of Spacer into Left Knee Joint, Open Approach (ICD-10-PCS; 2021-11-01)
PROC: 0YBG0ZZ Excision of Left Knee Region, Open Approach (ICD-10-PCS; 2021-11-01)
PROC: 02HV33Z Insertion of Infusion Device into Superior Vena Cava, Percutaneous Approach (ICD-10-PCS; 2021-11-05)
DX: T84.54XA Infection and inflammatory reaction due to internal left knee prosthesis, initial encounter (principal); L03.116 Cellulitis of left lower limb; R65.10 Systemic inflammatory response syndrome (SIRS) of non-infectious origin without acute organ dysfunction; I10 Essential (primary) hypertension; E78.5 Hyperlipidemia, unspecified; E78.2 Mixed hyperlipidemia; J45.909 Unspecified asthma, uncomplicated; Y83.8 Other surgical procedures as the cause of abnormal reaction of the patient, or of later complication, without mention of misadventure at the time of the procedure; Y92.89 Other specified places as the place of occurrence of the external cause; E11.40 Type 2 diabetes mellitus with diabetic neuropathy, unspecified; Z79.4 Long term (current) use of insulin; Z82.49 Family history of ischemic heart disease and other diseases of the circulatory system; Z79.84 Long term (current) use of oral hypoglycemic drugs; Z88.8 Allergy status to other drugs, medicaments and biological substances; B95.61 Methicillin susceptible Staphylococcus aureus infection as the cause of diseases classified elsewhere
CPT/HCPCS: 36415; 80048; 81001; 82962; 85014; 85018; 85025; 85652; 86140; 87075; 87076; 87116; 87186; 88300; 88302; 94640; 94760; G0378; J3490; Q9967; C1713; J0690; J1100; J1170; J1650; J1815; J1885; J2250; J2270; J2370; J2405; J2704; J3010; J3370; J7120